=== PATIENT | male | born 1945 | race Caucasian/White ===

== ENCOUNTER → 2017-11-19 | Outpatient (CLI) | payer OTHER ==
[~2017-11-19] MED LIST: ASCA500 PO; ASPCH81; FENO145T26 PO; MULT-506 PO; PARO1TAB27 PO; PRLSR20 PO; SIMV20TA2 PO
--- NOTE | 2017-11-19 10:48 | DIAGNOSTIC IMAGING REPORT ---
R ANKLE MIN 3 VIEWS ROUTINE HISTORY: 72 years-old Male R ANKLE PAIN acute right-sided ankle pain without reported trauma COMPARISON: None available TECHNIQUE: 3 views of the right ankle FINDINGS: There is mild soft tissue signed about the ankle. Suspected small joint effusion. Mild degenerative changes are noted throughout the midfoot and hindfoot without acute fracture, dislocation or osteochondral defect. Ill-defined irregular lucency of the distal fibula at the level of the tibial plafond as seen on the AP projection appears normal on the oblique view suggesting bony trabeculation. IMPRESSION: 1. Ill-defined irregular lucency of the distal fibula at the level of the tibial plafond is seen on the AP projection only and likely reflects bony trabeculation with acute nondisplaced fracture thought to be less likely. Correlate with point tenderness. 2. Mild soft tissue swelling. The above report was generated using voice recognition software. It may contain grammatical, syntax or spelling errors. Electronically signed by: Bryce Corbett M.D. 11/19/2017 10:47 AM Dictated Date/Time: 11/19/2017 10:43 AM
== END | disposition home or self-care (01) ==
LOC: C.RAD1850 10:32
PROVIDERS: ATTEND Family Medicine
DX: M25.571 Pain in right ankle and joints of right foot (principal); R93.7 Abnormal findings on diagnostic imaging of other parts of musculoskeletal system

== ENCOUNTER → 2018-01-22 | Outpatient (CLI) | payer OTHER ==
--- NOTE | 2018-01-22 09:50 | DIAGNOSTIC IMAGING REPORT ---
R ANKLE MIN 3 VIEWS ROUTINE HISTORY: 73 years-old Male RIGHT ANKLE PAIN acute right ankle pain COMPARISON: Right ankle radiographs 11/19/2017 TECHNIQUE: 3 views of the right ankle FINDINGS: There is no acute fracture or dislocation. The distal tibia and fibula appear intact. Small ankle joint effusion with mild soft tissue swelling about the ankle. Mild marginal spurring of the dorsal talus and navicular. No opaque foreign body. No osteochondral defect. IMPRESSION: 1. No acute fracture or dislocation. 2. Mild soft tissue swelling about the ankle with small ankle joint effusion. The above report was generated using voice recognition software. It may contain grammatical, syntax or spelling errors. Electronically signed by: Bryce Corbett M.D. 01/22/2018 9:48 AM Dictated Date/Time: 01/22/2018 9:47 AM
== END | disposition home or self-care (01) ==
LOC: C.RAD1850 09:12
PROVIDERS: ATTEND Family Medicine
DX: S99.911A Unspecified injury of right ankle, initial encounter (principal); W10.8XXA Fall (on) (from) other stairs and steps, initial encounter

== ENCOUNTER 2019-04-12 13:57 | Observation (INO) ==
--- OUTSIDE RECORDS SUMMARY | 2019-04-12 14:01 | External Medical Summary | Continuity of Care Document ---
:1945 Author Name Kayla Vazquez, Provider Address Unavailable Unavailable , Care Team Providers Name Role Phone Unavailable Unavailable Unavailable MELY RAMOS Unavailable Unavailable Problems Active medical history not documented Allergies and Adverse Reactions Penicillins (Allergy) Medications Lidex OINT , M.DRubén Refills: 0 Aspirin TABS , M.DRubén Refills: 0 Procedures Procedures not documented Immunizations Immunizations not documented Plan of Treatment Planned Observations Planned Goals not documented Results No Known Results Results not documented
[2019-04-12 14:40] LABS: Basophils # (auto) 0.01 K/uL (0-0.2); Basophils % (auto) 0.2 %; Eosinophils # (auto) 0.19 K/uL (0-0.5); Eosinophils % (auto) 3.6 %; Hematocrit (blood only) 42.5 % (42-52); Hemoglobin 14.1 g/dL (14.0-18.0); Immature Granulocytes # (auto) 0.02 K/uL (0.00-0.02); Immature Granulocytes % (auto) 0.4 %; Lymphocytes % (auto) 37.5 %; Mean Corpuscular Hgb Conc 33.2 g/dL (32-36); Mean Corpuscular Volume 86.2 fL (80-100); Mean Platelet Volume 10.2 fL (7.4-10.4); Monocytes # (auto) 0.63 K/uL (0.11-0.59); Monocytes % (auto) 11.8 %; Neutrophils # (auto) 2.48 K/uL (1.4-6.5); Neutrophils % (auto) 46.5 %; Platelet Count 223 K/uL (130-400); RDW Coefficient of Variation 13.9 % (11.5-14.5); RDW Standard Deviation 43.9 fL (36.4-46.3); Red Blood Count 4.93 M/uL (4.7-6.1); White Blood Count 5.33 K/uL (4.8-10.8)
--- NOTE | 2019-04-12 14:48 | XRay Report ---
SINGLE VIEW CHEST CLINICAL HISTORY: Atypical chest pain. FINDINGS: 2 AP, portable, upright chest radiographs are compared to study dated 01/07/2019. The examin ation is degraded by portable technique and patient rotation. The cardiomediastinal silhouette is un remarkable noting atherosclerotic calcification of the thoracic aorta. There is chronic elevation of right hemidiaphragm with associated atelectasis. The left lung appears clear. No large pleural effusi on or pneumothorax is seen. The skeletal structures are osteopenic. The bony thorax is grossly intact . IMPRESSION: No acute cardiopulmonary abnormality. Electronically signed by: Giorgio Brown M.D. 04/12/2019 2:46 PM
[2019-04-12 15:00] LABS: Alanine Aminotransferase 34 U/L (12-78); Albumin Level 3.9 gm/dl (3.4-5.0); Aspartate Aminotransferase 23 U/L (15-37); BUN Creatinine Ratio 18.9 (10-20); Blood Urea Nitrogen 20 mg/dl (7-18); Calcium 9.3 mg/dl (8.5-10.1); Carbon Dioxide 28 mmol/L (21-32); Chloride 108 mmol/L (98-107); Creatinine Clr Calc Pharmacy 69.9 ml/min; Est GFR (African American) 79.7; Est GFR (Non-African American) 68.8; Glucose 114 mg/dl (70-99); Magnesium 1.8 mg/dl (1.8-2.4); Potassium 3.9 mmol/L (3.5-5.1); Sodium 141 mmol/L (136-145)
[2019-04-12 15:05] LABS: Albumin Globulin Ratio 1.3 (0.9-2); Alkaline Phosphatase 64 U/L (45-117); Bilirubin,Total 0.5 mg/dl (0.2-1); Globulin 2.9 gm/dl (2.5-4.0); Total Protein 6.8 gm/dl (6.4-8.2); Troponin I < 0.015 ng/ml (0-0.045)
--- NOTE | 2019-04-12 15:20 | Emergency Department Note ---
Entered by Lashawn Larsen acting as a scribe for Giorgio Burgess MD History of Present Illness General Chief complaint: Chest Pain Stated complaint: DISCOMFORT IN CHEST Time Seen by Provider: 04/12/19 14:20 Source: patient History of Present Illness Provider complaint: chest pain Onset (ago): month(s) (last several months) Location: chest Pain Consistency: + intermittent Maximum Pain Intensity: 7 Quality: + burning Exacerbated By: + movement (exertion) Associated symptoms: + diaphoresis and + shortness of breath The patient is a 74 year old male who presents to the Emergency Department with complaints of intermittent chest pain for the last several months. The patient rates his pain at a 7/10 and states that when he gets the pain he usually has it for about an hour. He states that it is a burning pain and feels like indigestion. He states that he takes Omeprazole for his symptoms. He states that exertion sometimes exacerbates his symptoms. He denies a history of a cholecystectomy but states that eating does not usually exacerbate his symptoms. The patient does report being more short of breath since the winter time when he had the flu. He states that he also sweats a lot but not necessarily with his pain. The patient denies a history of a heart attack or a cardiac stent. The patient states that he called his doctor who referred him here. He denies a history of diabetes, but states that he takes medication for hyperlipidemia. He states that he quit smoking 35 years ago. He reports a family history of valve problems and states that his brother of a heart attack. He states that he takes a baby aspirin but is not on other blood thinners. Home Medications Home Medications Medication Instructions Recorded Confirmed Type Mucinex DM 1 tab PO DIRECTED PRN 01/07/19 04/12/19 History Symbicort 2 puff INHALATION DAILY 01/07/19 04/12/19 History acetaminophen [Tylenol Extra 500 mg PO DIRECTED PRN 01/07/19 04/12/19 History Strength] ascorbic acid (vitamin C) [Vitamin 500 mg PO DAILY 01/07/19 04/12/19 History C] aspirin 81 mg PO DAILY 01/07/19 04/12/19 History atorvastatin 20 mg PO QPM 01/07/19 04/12/19 History fenofibrate nanocrystallized 145 mg PO DAILY 01/07/19 04/12/19 History [Tricor] fluticasone propionate [Flonase 1 spray INTRANASAL DAILY 01/07/19 04/12/19 History Allergy Relief] losartan 50 mg PO DAILY 01/07/19 04/12/19 History multivitamin 1 tab PO DAILY 01/07/19 04/12/19 History omeprazole 20 mg PO DAILY 01/07/19 04/12/19 History paroxetine HCl [Paxil] 20 mg PO DAILY 01/07/19 04/12/19 History Allergies Allergy/AdvReac Type Severity Reaction Status Date / Time Penicillins Allergy Intermediate HIVES Unverified 04/12/19 16:04 banana Allergy Unknown Unverified 04/12/19 16:04 Past Med/Surg History Medical History Asthma Dyslipidemia GERD (gastroesophageal reflux disease) H/O tobacco use, presenting hazards to health HTN (hypertension) Surgical History No pertinent past surgical history Family History Brother Coronary heart disease Mother Coronary heart disease Father AAA (abdominal aortic aneurysm) Sister Coronary heart disease Other Family history non-contributory Myocardial infarction Social History Preferred Language: Tunisian Communication Ability: Effective Beliefs That Will Affect Care: Restoration Restoration Beliefs: "I'm a [place]" Current Living Situation: Spouse Feels Safe at Home: Yes Smoking Status: Former smoker Second Hand Exposure: No Hx Alcohol Use: Yes Hx Substance Use: No Review of Systems See HPI for pertinent positives & negatives. and A total of 10 systems reviewed and were otherwise negative Physical Exam Vital Signs Vital Signs - 24 hr 04/12/19 14:02 04/12/19 14:18 04/12/19 14:23 Temperature 36.8 C Temperature Source Oral Sepsis Recent Fever Within 48 Hours No Sepsis Action Taken by Nursing No Action Required Pulse Rate 89 79 Pulse Rate [Apical] Pulse Rate from SpO2 Sensor 80 Pulse Rhythm [Apical] Pulse Strength [Apical] Respiratory Rate 20 19 Respiratory Effort / Characteristics Non-Labored Spontaneous Non-Labored Spontaneous Respiratory Depth Normal Normal Blood Pressure 144/70 H 137/72 Blood Pressure [Right Arm] Blood Pressure Mean 94 93 Blood Pressure Mean [Right Arm] Blood Pressure Position Sitting Blood Pressure Position [Right Arm] Pulse Oximetry 93 93 Oxygen Delivery Method Room Air Room Air Room Air 04/12/19 14:30 04/12/19 14:35 04/12/19 14:38 Temperature Temperature Source Sepsis Recent Fever Within 48 Hours Sepsis Action Taken by Nursing Pulse Rate 81 Pulse Rate [Apical] 76 Pulse Rate from SpO2 Sensor 81 Pulse Rhythm [Apical] Regular Pulse Strength [Apical] Normal Respiratory Rate 20 18 Respiratory Effort / Characteristics Non-Labored Spontaneous Respiratory Depth Normal Blood Pressure 139/76 Blood Pressure [Right Arm] 139/76 Blood Pressure Mean 97 Blood Pressure Mean [Right Arm] 97 Blood Pressure Position Blood Pressure Position [Right Arm] Sitting Pulse Oximetry 92 92 92 Oxygen Delivery Method Room Air Room Air 04/12/19 15:33 04/12/19 15:34 04/12/19 15:35 Temperature Temperature Source Sepsis Recent Fever Within 48 Hours Sepsis Action Taken by Nursing Pulse Rate 66 67 Pulse Rate [Apical] 67 Pulse Rate from SpO2 Sensor 66 67 Pulse Rhythm [Apical] Pulse Strength [Apical] Respiratory Rate 17 20 21 Respiratory Effort / Characteristics Respiratory Depth Blood Pressure 140/70 Blood Pressure [Right Arm] 140/70 Blood Pressure Mean 93 Blood Pressure Mean [Right Arm] 93 Blood Pressure Position Blood Pressure Position [Right Arm] Pulse Oximetry 94 92 94 Oxygen Delivery Method Room Air 04/12/19 16:00 04/12/19 16:01 04/12/19 16:26 Temperature Temperature Source Sepsis Recent Fever Within 48 Hours Sepsis Action Taken by Nursing Pulse Rate 67 68 Pulse Rate [Apical] 71 Pulse Rate from SpO2 Sensor 67 68 Pulse Rhythm [Apical] Pulse Strength [Apical] Respiratory Rate 22 20 21 Respiratory Effort / Characteristics Respiratory Depth Blood Pressure 145/71 H Blood Pressure [Right Arm] 145/71 H Blood Pressure Mean 95 Blood Pressure Mean [Right Arm] 95 Blood Pressure Position Blood Pressure Position [Right Arm] Pulse Oximetry 92 92 95 Oxygen Delivery Method Room Air 04/12/19 16:30 04/12/19 17:00 04/12/19 17:01 Temperature Temperature Source Sepsis Recent Fever Within 48 Hours Sepsis Action Taken by Nursing Pulse Rate 68 67 67 Pulse Rate [Apical] Pulse Rate from SpO2 Sensor 69 68 67 Pulse Rhythm [Apical] Pulse Strength [Apical] Respiratory Rate 24 16 20 Respiratory Effort / Characteristics Respiratory Depth Blood Pressure 141/79 H 140/74 Blood Pressure [Right Arm] Blood Pressure Mean 99 96 Blood Pressure Mean [Right Arm] Blood Pressure Position Blood Pressure Position [Right Arm] Pulse Oximetry 94 94 93 Oxygen Delivery Method 04/12/19 17:47 04/12/19 17:57 Temperature Temperature Source Sepsis Recent Fever Within 48 Hours Sepsis Action Taken by Nursing Pulse Rate Pulse Rate [Apical] 73 Pulse Rate from SpO2 Sensor Pulse Rhythm [Apical] Pulse Strength [Apical] Respiratory Rate 20 20 Respiratory Effort / Characteristics Respiratory Depth Blood Pressure Blood Pressure [Right Arm] 143/77 H Blood Pressure Mean Blood Pressure Mean [Right Arm] 99 Blood Pressure Position Blood Pressure Position [Right Arm] Pulse Oximetry 93 93 Oxygen Delivery Method Room Air Room Air GENERAL: Patient is in no acute distress. HEENT: No acute trauma, normocephalic atraumatic, mucous membranes moist, no nasal congestion, no scleral icterus. NECK: No stridor, no adenopathy, no meningismus, trachea is midline. LUNGS: Clear to auscultation bilaterally, no wheeze, no rhonchi, breath sounds equal. HEART: Without murmurs gallops or rubs, regular rate and rhythm. ABDOMEN: Soft, nontender, bowel sounds positive, no hernias, no peritonitis. EXTREMITIES: No cyanosis or edema, full range of motion of all the joints without pain or difficulty, no signs for acute trauma. NEUROLOGIC: Oriented x 3, no acute motor or sensory deficits, no focal weakness. SKIN: No rash, no jaundice, no diaphoresis. Course 1421: The patient was evaluated in room B2. A history and physical were performed. 1428: The patient's heart score is a 4. 1608: I updated the patient on his results. He is agreeable to admission. 1620: I discussed the patient's case with Dr. Fausto Carreon who will evaluate the patient for further management. Consultations Consultation #1: Dr. Fausto Carreon Time: 16:20 Medical Decision Making Differential Diagnosis Differentials include reflux, gastritis, ulcer, pancreatitis, biliary colic, anemia, electrolyte imbalance, MN, and angina. Medical Records Attestation: I reviewed the patient's medical records. Home Medications Current Medication List: was personally reviewed by me Laboratory Data Attestation: I reviewed the patient's lab results. Result diagrams: 04/12/19 14:18 04/12/19 14:18 Lab Results 04/12/19 04/12/19 Range/Units 14:18 14:18 WBC 5.33 (4.8-10.8) K/uL RBC 4.93 (4.7-6.1) M/uL Hgb 14.1 (14.0-18.0) g/dL Hct 42.5 (42-52) % MCV 86.2 (80-100) fL MCH 28.6 (25-34) pg MCHC 33.2 (32-36) g/dL RDW Std Deviation 43.9 (36.4-46.3) fL RDW Coeff of Mariano 13.9 (11.5-14.5) % Plt Count 223 (130-400) K/uL MPV 10.2 (7.4-10.4) fL Immature Gran % (Auto) 0.4 % Neut % (Auto) 46.5 % Lymph % (Auto) 37.5 % [place] % (Auto) 11.8 % Eos % (Auto) 3.6 % Baso % (Auto) 0.2 % Immature Gran # (Auto) 0.02 (0.00-0.02) K/uL Neut # (Auto) 2.48 (1.4-6.5) K/uL Lymph # (Auto) 2.00 (1.2-3.4) K/uL [place] # (Auto) 0.63 H (0.11-0.59) K/uL Eos # (Auto) 0.19 (0-0.5) K/uL Baso # (Auto) 0.01 (0-0.2) K/uL Sodium 141 (136-145) mmol/L Potassium 3.9 (3.5-5.1) mmol/L Chloride 108 H (98-107) mmol/L Carbon Dioxide 28 (21-32) mmol/L Anion Gap 5.0 (3-11) BUN 20 H (7-18) mg/dl Creatinine 1.06 (0.6-1.4) mg/dl Est Cr Clr Drug Dosing 69.9 ml/min Est GFR ( Amer) 79.7 Est GFR (Non-Af Amer) 68.8 BUN/Creatinine Ratio 18.9 (10-20) Glucose 114 H (70-99) mg/dl Calcium 9.3 (8.5-10.1) mg/dl Magnesium 1.8 (1.8-2.4) mg/dl Total Bilirubin 0.5 (0.2-1) mg/dl AST 23 (15-37) U/L ALT 34 (12-78) U/L Alkaline Phosphatase 64 (45-117) U/L Troponin I < 0.015 (0-0.045) ng/ml Total Protein 6.8 (6.4-8.2) gm/dl Albumin 3.9 (3.4-5.0) gm/dl Globulin 2.9 (2.5-4.0) gm/dl Albumin/Globulin Ratio 1.3 (0.9-2) Lipase 163 (73-393) U/L Imaging Data Radiologist's Impression: Radiology results as stated below per my review and the radiologist's interpretation: SINGLE VIEW CHEST CLINICAL HISTORY: Atypical chest pain. FINDINGS: 2 AP, portable, upright chest radiographs are compared to study dated 01/07/2019. The examination is degraded by portable technique and patient rotation. The cardiomediastinal silhouette is unremarkable noting atherosclerotic calcification of the thoracic aorta. There is chronic elevation of right hemidiaphragm with associated atelectasis. The left lung appears clear. No large pleural effusion or pneumothorax is seen. The skeletal structures are osteopenic. The bony thorax is grossly intact. IMPRESSION: No acute cardiopulmonary abnormality. Electronically signed by: Giorgio Brown M.D. 04/12/2019 2:46 PM US gallbladder CLINICAL HISTORY: Epigastric pain. COMPARISON STUDY: No previous studies for comparison. FINDINGS: Exam is compromised by suboptimal penetration. The pancreas is obscured by bowel gas. The liver is mildly echogenic. No hepatic lesions are identified. No biliary ductal dilatation is identified. The common bile duct measures 5 mm in caliber. Multiple gallstones are noted within the gallbladder. Gallbladder is contracted. No sonographic Zhou sign was reported by the technologist. Gallbladder wall thickness is at the upper limits of normal. There is no right hydronephrosis. IMPRESSION: 1. Cholelithiasis. No convincing evidence for acute cholecystitis although a hepatobiliary scan could be obtained as indicated. 2. No biliary ductal dilatation. 3. Obscured pancreas due to overlying bowel gas. 4. Possible fatty liver. Electronically signed by: Tae Sutton M.D. 04/12/2019 3:21 PM ECG Data Attestation: I personally reviewed and interpreted this ECG as follows: Indication: chest pain Rate (beats per minute): 79 Rhythm: normal sinus Findings: no PVC and no ST elevation Blood Pressure Blood Pressure Findings: Elevated blood pressure Blood Pressure Disposition: further management by hospitalist MDM Narrative There is no leukocytosis or concerning anemia. No significant electrolyte abnormality or kidney failure. No elevation to the liver enzymes. No evidence for pancreatitis. EKG showed a sinus rhythm, no acute ischemia. Cardiac enzyme testing x1 was not consistent with acute cardiac injury. Chest film did not show mediastinal widening or pneumonia. Gallbladder ultrasound showed gallstones without acute cholecystitis. The patient presents with several months of symptoms which sound possibly GI in nature, possibly cardiac in nature. The patient does have a heart score of 4, admission/observation for further cardiac testing is warranted based on this number. I talked to the patient about hospitalization, he was in agreement. I did speak with the case management team, the on-call hospitalist was consulted. Impression & Plan Precordial chest pain, SOB (shortness of breath), Gallstones Discharge Plan Visit Data Chief Complaint: Chest Pain Stated Complaint: DISCOMFORT IN CHEST ED Provider: Giorgio Burgess Discharge Problem: Precordial chest pain, SOB (shortness of breath), Gallstones Patient Disposition: Being Evaluated by Hospitalist Discharge Instructions Interventions: ED Discharge Assessment Last Done: 04/12/19 17:57 Forms Stand Alone Forms: Call Back Authorization, [facility] Prescriptions Prescriptions: No Action multivitamin Tablet 1 tab PO DAILY RF: 0 losartan 50 mg Tablet 50 mg PO DAILY RF: 0 atorvastatin 20 mg Tablet 20 mg PO QPM RF: 0 aspirin 81 mg Tablet,Delayed Release (Dr/Ec) 81 mg PO DAILY RF: 0 acetaminophen [Tylenol Extra Strength] 500 mg Tablet 500 mg PO DIRECTED PRN (Reason: Pain) RF: 0 ascorbic acid (vitamin C) [Vitamin C] 500 mg Tablet 500 mg PO DAILY RF: 0 paroxetine HCl [Paxil] 20 mg Tablet 20 mg PO DAILY RF: 0 omeprazole 20 mg Capsule,Delayed Release(Dr/Ec) 20 mg PO DAILY RF: 0 Mucinex DM 30-600 mg Tablet Extended Release 12 Hr 1 tab PO DIRECTED PRN (Reason: Unknown) RF: 0 fluticasone propionate [Flonase Allergy Relief] 50 mcg/actuation Harmon,Rahman spension 1 spray INTRANASAL DAILY RF: 0 fenofibrate nanocrystallized [Tricor] 145 mg Tablet 145 mg PO DAILY RF: 0 Symbicort 80-4.5 mcg/actuation Hfa Aerosol Inhaler 2 puff INHALATION DAILY RF: 0 Referrals Referrals: Wayne Alexander DO [Primary Care Provider] - The scribe's documentation has been prepared under my direction and personally reviewed by me in its entirety. I confirm that the note above accurately reflects all work, treatment, procedures, and medical decision making performed by me.
--- NOTE | 2019-04-12 15:22 | Ultrasound Report ---
US gallbladder CLINICAL HISTORY: Epigastric pain. COMPARISON STUDY: No previous studies for comparison. FINDINGS: Exam is compromised by suboptimal penetration. The pancreas is obscured by bowel gas. The l iver is mildly echogenic. No hepatic lesions are identified. No biliary ductal dilatation is identifi ed. The common bile duct measures 5 mm in caliber. Multiple gallstones are noted within the gallbladd er. Gallbladder is contracted. No sonographic Zhou sign was reported by the technologist. Gallbladd er wall thickness is at the upper limits of normal. There is no right hydronephrosis. IMPRESSION: 1. Cholelithiasis. No convincing evidence for acute cholecystitis although a hepatobiliary scan could be obtained as indicated. 2. No biliary ductal dilatation. 3. Obscured pancreas due to overlying bowel gas. 4. Possible fatty liver. Electronically signed by: Tae Sutton M.D. 04/12/2019 3:21 PM
--- NOTE | 2019-04-12 16:52 | History & Physical Report ---
Date of Service April 12, 2019 Assessment & Plan (1) Epigastric pain: Patient with 2-3 months of intermittent epigastric discomfort -HIDA scan -Repeat troponin to document trend -Telemetry monitoring (2) Asthma: Chronic. Stable -Continue Symbicort -Continue Flonase (3) Hypertension: Chronic. Mildly elevated BP at present 145/71 -Continue Losartan (4) Dyslipidemia: Chronic -Continue Atorvastatin -Continue Tricor (5) GERD (gastroesophageal reflux disease): Chronic -Continue Omeprazole (6) Depression: Chronic. stable -Continue Paxil F/E/N - Heplock. Electolytes WNL. Heart healthy diet as tolerated Ppx - low risk for DVT. Continue home Omeprazole Code - Full Dispo - Obs to med with telemetry History of Present Illness Chief Complaint: Epigastric pain Primary Care Provider: Wayne Alexander DO Mr. Skinner is a 74yo C male with history of asthma, GERD, HTN and dyslipidemia presenting with 2-3 months of intermittent epigastric and RUQ pain. Possibly associated with meals. Occasionally brought on with activity. Pain is a dull ache, 7/10 in severity at its worst. Lasts appx 30 minutes then resolves. Denies nausea/vomiting/abdominal distention/precordial CP/SOB/palpitations. Denies orthopnea/edema/weight gain/diaphoresis. Denies fevers/chills/jaundice Allergies Allergy/AdvReac Type Severity Reaction Status Date / Time Penicillins Allergy Intermediate HIVES Unverified 04/12/19 16:04 banana Allergy Unknown Unverified 04/12/19 16:04 Home Medications Home Medications Medication Instructions Recorded Confirmed Type Mucinex DM 1 tab PO DIRECTED PRN 01/07/19 04/12/19 History Symbicort 2 puff INHALATION DAILY 01/07/19 04/12/19 History acetaminophen [Tylenol Extra 500 mg PO DIRECTED PRN 01/07/19 04/12/19 History Strength] ascorbic acid (vitamin C) [Vitamin 500 mg PO DAILY 01/07/19 04/12/19 History C] aspirin 81 mg PO DAILY 01/07/19 04/12/19 History atorvastatin 20 mg PO QPM 01/07/19 04/12/19 History fenofibrate nanocrystallized 145 mg PO DAILY 01/07/19 04/12/19 History [Tricor] fluticasone propionate [Flonase 1 spray INTRANASAL DAILY 01/07/19 04/12/19 History Allergy Relief] losartan 50 mg PO DAILY 01/07/19 04/12/19 History multivitamin 1 tab PO DAILY 01/07/19 04/12/19 History omeprazole 20 mg PO DAILY 01/07/19 04/12/19 History paroxetine HCl [Paxil] 20 mg PO DAILY 01/07/19 04/12/19 History Past Med/Surg History Medical History Asthma Dyslipidemia GERD (gastroesophageal reflux disease) H/O tobacco use, presenting hazards to health HTN (hypertension) Surgical History History of hernia repair History of rotator cuff surgery Family History Brother Coronary heart disease Mother Coronary heart disease Father AAA (abdominal aortic aneurysm) Sister Coronary heart disease Other Family history non-contributory Myocardial infarction Social History Preferred Language: Polish Communication Ability: Effective Economics Department Chair Required: No Beliefs That Will Affect Care: Scientologist Scientologist Beliefs: "I'm a Bretheran" Current Living Situation: Spouse Other Information That Helps Us Care for You: No Feels Safe at Home: Yes Safety Concerns: Feels Safe At This Time Smoking Status: Former smoker Smoking End Date: quit in mid to late 30's Second Hand Exposure: No Hx Alcohol Use: Yes Hx Substance Use: No Review of Systems Review of Systems: All systems reviewed & are unremarkable except as noted in HPI & below Physical Exam Physical Exam: General: patient resting comfortably, NAD, non-toxic in appearance, AA&O x 4 Skin: warm, dry, intact, no rashes or lesions HEENT: NC/AT, PERRL, EOMI, anicteric sclera, conjunctiva without injection, external ear normal to inspection and nontender, nares patent, moist mucus membranes, dentition intact, no oropharyngeal lesions, neck supple, trachea midline, no LAD, no thyromegaly, no JVD Heart: +S1/S2, regular, no m/r/g Lungs: equal air entry bilaterally, no rales/rhonchi/wheezes Abd: +BS, soft, NT/ND, no masses/organomegaly/ascites, negative [place] Ext: warm, 2+ pulses in UE/LE bilaterally, no clubbing/cyanosis or edema Neuro: nonfocal, patient AA&O x 4, speech intact, no facial droop, moving all extremities on command with equal strength 5/5 Results & Data Vital Signs (Past 12 Hours) Vital Signs Temp Pulse Pulse Resp BP BP Pulse Ox 04/12/19 16:26 71 21 145/71 H 95 04/12/19 15:34 67 20 140/70 92 04/12/19 14:38 92 04/12/19 14:35 76 18 139/76 92 04/12/19 14:18 79 19 137/72 93 04/12/19 14:02 36.8 C 89 20 144/70 H 93 Laboratory Results Lab Results 04/12/19 04/12/19 04/12/19 Range/Units 14:18 14:18 20:14 WBC 5.33 (4.8-10.8) K/uL RBC 4.93 (4.7-6.1) M/uL Hgb 14.1 (14.0-18.0) g/dL Hct 42.5 (42-52) % MCV 86.2 (80-100) fL MCH 28.6 (25-34) pg MCHC 33.2 (32-36) g/dL RDW Std Deviation 43.9 (36.4-46.3) fL RDW Coeff of Mariano 13.9 (11.5-14.5) % Plt Count 223 (130-400) K/uL MPV 10.2 (7.4-10.4) fL Immature Gran % (Auto) 0.4 % Neut % (Auto) 46.5 % Lymph % (Auto) 37.5 % [place] % (Auto) 11.8 % Eos % (Auto) 3.6 % Baso % (Auto) 0.2 % Immature Gran # (Auto) 0.02 (0.00-0.02) K/uL Neut # (Auto) 2.48 (1.4-6.5) K/uL Lymph # (Auto) 2.00 (1.2-3.4) K/uL [place] # (Auto) 0.63 H (0.11-0.59) K/uL Eos # (Auto) 0.19 (0-0.5) K/uL Baso # (Auto) 0.01 (0-0.2) K/uL Sodium 141 (136-145) mmol/L Potassium 3.9 (3.5-5.1) mmol/L Chloride 108 H (98-107) mmol/L Carbon Dioxide 28 (21-32) mmol/L Anion Gap 5.0 (3-11) BUN 20 H (7-18) mg/dl Creatinine 1.06 (0.6-1.4) mg/dl Est Cr Clr Drug Dosing 69.9 ml/min Est GFR ( Amer) 79.7 Est GFR (Non-Af Amer) 68.8 BUN/Creatinine Ratio 18.9 (10-20) Glucose 114 H (70-99) mg/dl Calcium 9.3 (8.5-10.1) mg/dl Magnesium 1.8 (1.8-2.4) mg/dl Total Bilirubin 0.5 (0.2-1) mg/dl AST 23 (15-37) U/L ALT 34 (12-78) U/L Alkaline Phosphatase 64 (45-117) U/L Troponin I < 0.015 < 0.015 (0-0.045) ng/ml Total Protein 6.8 (6.4-8.2) gm/dl Albumin 3.9 (3.4-5.0) gm/dl Globulin 2.9 (2.5-4.0) gm/dl Albumin/Globulin Ratio 1.3 (0.9-2) Lipase 163 (73-393) U/L Diagnostic Findings US gallbladder CLINICAL HISTORY: Epigastric pain. COMPARISON STUDY: No previous studies for comparison. FINDINGS: Exam is compromised by suboptimal penetration. The pancreas is obscured by bowel gas. The liver is mildly echogenic. No hepatic lesions are identified. No biliary ductal dilatation is identified. The common bile duct measures 5 mm in caliber. Multiple gallstones are noted within the gallbladder. Gallbladder is contracted. No sonographic Zhou sign was reported by the technologist. Gallbladder wall thickness is at the upper limits of normal. There is no right hydronephrosis. IMPRESSION: 1. Cholelithiasis. No convincing evidence for acute cholecystitis although a hepatobiliary scan could be obtained as indicated. 2. No biliary ductal dilatation. 3. Obscured pancreas due to overlying bowel gas. 4. Possible fatty liver. Electronically signed by: Tae Sutton M.D. 04/12/2019 3:21 PM SINGLE VIEW CHEST CLINICAL HISTORY: Atypical chest pain. FINDINGS: 2 AP, portable, upright chest radiographs are compared to study dated 01/07/2019. The examination is degraded by portable technique and patient rotation. The cardiomediastinal silhouette is unremarkable noting atheroscle rotic calcification of the thoracic aorta. There is chronic elevation of right hemidiaphragm with associated atelectasis. The left lung appears clear. No large pleural effusion or pneumothorax is seen. The skeletal structures are osteopenic. The bony thorax is grossly intact. IMPRESSION: No acute cardiopulmonary abnormality. Electronically signed by: Giorgio Brown M.D. 04/12/2019 2:46 PM Dictated: 04/12/19 1445 Transcribed: 04/12/19 1445 ECG Additional Comments: NSR at 79, normal axis and intervals, no acute ischemic changes Code Status & VTE Plan Code Status Full
[2019-04-12] MEDS ORDERED: ACETAMINOPHEN 325 MG TAB PO PRN (18:38)
[2019-04-12] MEDS ORDERED: ONDANSETRON INJ 2 MG/ML 2 ML VIAL IV PRN (18:38)
[2019-04-12] MEDS ORDERED: ATORVASTATIN 20 MG TAB PO SCH (21:00)
[2019-04-13 03:50] LABS: Blood Urea Nitrogen 21 mg/dl (7-18); Calcium 9.7 mg/dl (8.5-10.1); Carbon Dioxide 30 mmol/L (21-32); Chloride 107 mmol/L (98-107); Est GFR (African American) 77.1; Est GFR (Non-African American) 66.5; Glucose 97 mg/dl (70-99); Sodium 141 mmol/L (136-145); Troponin I < 0.015 ng/ml (0-0.045)
[2019-04-13 04:03] LABS: Basophils # (auto) 0.02 K/uL (0-0.2); Basophils % (auto) 0.3 %; Eosinophils # (auto) 0.24 K/uL (0-0.5); Eosinophils % (auto) 3.7 %; Hematocrit (blood only) 41.9 % (42-52); Hemoglobin 13.8 g/dL (14.0-18.0); Immature Granulocytes # (auto) 0.03 K/uL (0.00-0.02); Immature Granulocytes % (auto) 0.5 %; Lymphocytes # (auto) 2.58 K/uL (1.2-3.4); Lymphocytes % (auto) 39.5 %; Mean Corpuscular Hgb Conc 32.9 g/dL (32-36); Mean Corpuscular Volume 86.4 fL (80-100); Monocytes # (auto) 0.58 K/uL (0.11-0.59); Monocytes % (auto) 8.9 %; Neutrophils # (auto) 3.08 K/uL (1.4-6.5); Neutrophils % (auto) 47.1 %; Platelet Count 208 K/uL (130-400); RDW Coefficient of Variation 13.9 % (11.5-14.5); RDW Standard Deviation 43.5 fL (36.4-46.3); Red Blood Count 4.85 M/uL (4.7-6.1); White Blood Count 6.53 K/uL (4.8-10.8)
[2019-04-13] MEDS ORDERED: ASPIRIN 81 MG ECTAB PO SCH (09:00)
[2019-04-13] MEDS ORDERED: LOSARTAN POTASSIUM 50 MG TAB PO SCH (09:00)
[2019-04-13] MEDS ORDERED: PARoxetine HCl 20 MG TAB PO SCH (09:00)
[2019-04-13] MEDS ORDERED: BUDESONIDE/FORMOTEROL FUMARATE 80/4.5 60 PUFFS/INHALER INH SCH (09:00)
[2019-04-13] MEDS ORDERED: FLUTICASONE PROPIONATE NA SPR 16 GM BTL SCH (09:00)
[2019-04-13] MEDS ORDERED: PANTOprazole 40 MG TAB PO SCH (09:00)
[2019-04-13] MEDS ORDERED: FENOFIBRATE NANOCRYSTALLIZED 145 MG TABLET PO SCH (09:00)
--- NOTE | 2019-04-13 10:04 | Nuclear Medicine Report ---
NM hepatobiliary HISTORY: Pain. Nausea. ?biliary colic/cholecystits COMPARISON: None. TECHNIQUE: Immediately following the intravenous administration of 5.3 mCi Tc-99m Choletec, dynamic a nterior abdominal imaging was performed. FINDINGS: Uniform hepatic tracer accumulation is shown. Prompt intrahepatic biliary excretion is seen. The gall bladder, common bile duct, and small bowel are all visualized by 15 minutes. This appearance represen ts the normal sequence of biliary excretion. IMPRESSION: No evidence for cystic duct obstruction. Normal study The above report was generated using voice recognition software. It may contain grammatical, syntax or spelling errors. Electronically signed by: Dar Everett M.D. 04/13/2019 10:03 AM
--- NOTE | 2019-04-13 19:37 | Discharge Summary ---
Date of Service April 13, 2019 Admission HPI Per Admitting Provider Mr. Skinner is a 74yo C male with history of asthma, GERD, HTN and dyslipidemia presenting with 2-3 months of intermittent epigastric and RUQ pain. Possibly associated with meals. Occasionally brought on with activity. Pain is a dull ache, 7/10 in severity at its worst. Lasts appx 30 minutes then resolves. Denies nausea/vomiting/abdominal distention/precordial CP/SOB/palpitations. Denies orthopnea/edema/weight gain/diaphoresis. Denies fevers/chills/jaundice Principal Diagnosis Epigastric pain, probable peptic ulcer disease spectrum Discharge Exam In general he is awake and alert pleasant no distress. HEENT normocephalic atraumatic mucous membranes moist. Breathing is unlabored no accessory muscle use good effort. Skin shows no rashes no pallor or icterus. Abdomen is soft nondistended minimal epigastric tenderness no guarding rebound no rigidity no right upper quadrant tenderness. Neuro shows cranial nerves II through XII are grossly intact gross motor and sensory intact. Mental status is good recent and remote recall normal mood affect good judgment insight Discharge Data Allergies Allergy/AdvReac Type Severity Reaction Status Date / Time Penicillins Allergy Intermediate HIVES Unverified 04/12/19 16:04 banana Allergy Unknown Unverified 04/12/19 16:04 Consultations 04/12/19 16:08 ED Decision to Admit Stat 04/13/19 14:10 Consult [facility] cardiac care nurse Routine Ordered Studies 04/12/19 14:29 US gallbladder Stat Showing Kathleen lithiasis but no cholecystitis or choledocholithiasis HIDA scan normal Lab Results 04/12/19 04/12/19 04/12/19 Range/Units 14:18 14:18 20:14 WBC 5.33 (4.8-10.8) K/uL RBC 4.93 (4.7-6.1) M/uL Hgb 14.1 (14.0-18.0) g/dL Hct 42.5 (42-52) % MCV 86.2 (80-100) fL MCH 28.6 (25-34) pg MCHC 33.2 (32-36) g/dL RDW Std Deviation 43.9 (36.4-46.3) fL RDW Coeff of Mariano 13.9 (11.5-14.5) % Plt Count 223 (130-400) K/uL MPV 10.2 (7.4-10.4) fL Immature Gran % (Auto) 0.4 % Neut % (Auto) 46.5 % Lymph % (Auto) 37.5 % [place] % (Auto) 11.8 % Eos % (Auto) 3.6 % Baso % (Auto) 0.2 % Immature Gran # (Auto) 0.02 (0.00-0.02) K/uL Neut # (Auto) 2.48 (1.4-6.5) K/uL Lymph # (Auto) 2.00 (1.2-3.4) K/uL [place] # (Auto) 0.63 H (0.11-0.59) K/uL Eos # (Auto) 0.19 (0-0.5) K/uL Baso # (Auto) 0.01 (0-0.2) K/uL Sodium 141 (136-145) mmol/L Potassium 3.9 (3.5-5.1) mmol/L Chloride 108 H (98-107) mmol/L Carbon Dioxide 28 (21-32) mmol/L Anion Gap 5.0 (3-11) BUN 20 H (7-18) mg/dl Creatinine 1.06 (0.6-1.4) mg/dl Est Cr Clr Drug Dosing 69.9 ml/min Est GFR ( Amer) 79.7 Est GFR (Non-Af Amer) 68.8 BUN/Creatinine Ratio 18.9 (10-20) Glucose 114 H (70-99) mg/dl Calcium 9.3 (8.5-10.1) mg/dl Magnesium 1.8 (1.8-2.4) mg/dl Total Bilirubin 0.5 (0.2-1) mg/dl AST 23 (15-37) U/L ALT 34 (12-78) U/L Alkaline Phosphatase 64 (45-117) U/L Troponin I < 0.015 < 0.015 (0-0.045) ng/ml Total Protein 6.8 (6.4-8.2) gm/dl Albumin 3.9 (3.4-5.0) gm/dl Globulin 2.9 (2.5-4.0) gm/dl Albumin/Globulin Ratio 1.3 (0.9-2) Lipase 163 (73-393) U/L 04/13/19 04/13/19 Range/Units 02:28 02:28 WBC 6.53 (4.8-10.8) K/uL RBC 4.85 (4.7-6.1) M/uL Hgb 13.8 L (14.0-18.0) g/dL Hct 41.9 L (42-52) % MCV 86.4 (80-100) fL MCH 28.5 (25-34) pg MCHC 32.9 (32-36) g/dL RDW Std Deviation 43.5 (36.4-46.3) fL RDW Coeff of Mariano 13.9 (11.5-14.5) % Plt Count 208 (130-400) K/uL MPV 10.0 (7.4-10.4) fL Immature Gran % (Auto) 0.5 % Neut % (Auto) 47.1 % Lymph % (Auto) 39.5 % [place] % (Auto) 8.9 % Eos % (Auto) 3.7 % Baso % (Auto) 0.3 % Immature Gran # (Auto) 0.03 H (0.00-0.02) K/uL Neut # (Auto) 3.08 (1.4-6.5) K/uL Lymph # (Auto) 2.58 (1.2-3.4) K/uL [place] # (Auto) 0.58 (0.11-0.59) K/uL Eos # (Auto) 0.24 (0-0.5) K/uL Baso # (Auto) 0.02 (0-0.2) K/uL Sodium 141 (136-145) mmol/L Potassium 4.0 (3.5-5.1) mmol/L Chloride 107 (98-107) mmol/L Carbon Dioxide 30 (21-32) mmol/L Anion Gap 4.0 (3-11) BUN 21 H (7-18) mg/dl Creatinine 1.09 (0.6-1.4) mg/dl Est Cr Clr Drug Dosing 68.0 ml/min Est GFR ( Amer) 77.1 Est GFR (Non-Af Amer) 66.5 BUN/Creatinine Ratio 19.0 (10-20) Glucose 97 (70-99) mg/dl Calcium 9.7 (8.5-10.1) mg/dl Magnesium (1.8-2.4) mg/dl Total Bilirubin (0.2-1) mg/dl AST (15-37) U/L ALT (12-78) U/L Alkaline Phosphatase (45-117) U/L Troponin I < 0.015 (0-0.045) ng/ml Total Protein (6.4-8.2) gm/dl Albumin (3.4-5.0) gm/dl Globulin (2.5-4.0) gm/dl Albumin/Globulin Ratio (0.9-2) Lipase (73-393) U/L Hospital Course (1) Epigastric pain: Initial differential was concerning for gallbladder. But his ultrasound only showed stones and no cholecystitis or choledocholithiasis. His HIDA was normal. On revisiting his HPI, he describes epigastric discomfort predominantly after eating with burping and belching with more pressure whenever he bends over.He does not have significant right upper quadrant tendernessFortunately does not have significant epigastric tenderness to palpation or anything to suggest decompensating peptic ulcer disease, and after discussion, he and I decide to escalate his PPI to Prilosec twice a day, hold off on his aspirin, and then seek an outpatient EGD (as the navigator to set him up with gastroenterology) he will also follow-up with his PCP until he is getting better. More than likely this is in the peptic ulcer disease spectrum, and he certainly shows no signs or symptoms of upper GI bleed or other decompensations. He is stable for home. Total Time Total Time Spent Total Time Spent (In Minutes): Greater than 30 Discharge Plan Discharge Items Patient Disposition: Home - Self-Care Reason For Visit: ABDOMINAL,EPIGASTRIC PAIN Discharge Diagnosis: epigastric pain - most likely peptic ulcer disease (see below) Discharge Goals: Decrease discomfort Activity: Resume your previous activity Non-emergency contact: Primary Care Provider and Auto Air Conditioning Installer Call non-emergency contact if: you have any medication questions Follow-up/Referrals: Miguel Gregory [Physician] - 06/01/19 2:00 pm Rich Magdaleno MD [Resident] - 04/19/19 10:30 am Diet: Regular and Low Fat Addtl Provider Instructions: epigastric pain - most likely in the spectrum of peptic ulcer disease -while your ultrasound showed gallstones, there fortunately was no other evidence of infection or stones blocking up the drain pipes. as we discussed, somewhere on the order of 20% of people have gallstones that are totally asymptomatic. the "gallbladder stress test" (HIDA) showed that your gallbladder also appears to function normally -given that gallbladder was effectively ruled out, the other common cause of symptoms like you've been having is your stomach. it's quite fitting with your symptoms to have something in the spectrum of peptic ulcer disease (gastritis - a "brush burn" the whole way up to a true ulcer) --> most of these are treated with escalating stomach medicines - so the first step will be to increase your prilosec (omeprazole) to twice a day. we'll work to get you seen with gastroenterology for an EGD (upper endoscopy) in the near future since your symptoms have been going on so long. -as we discussed, avoid anti-inflammatories and alcohol (although neither seem to be a problem for you); but also, for now, hold off on your aspirin -- it is also a common culprit for causing peptic ulcer disease spectrum problems. after the EGD is done, you'll be able to discuss with Dr Alexander the risks and benefits of resuming it. Prescriptions: Continued multivitamin Tablet 1 tab PO DAILY RF: 0 losartan 50 mg Tablet 50 mg PO DAILY RF: 0 atorvastatin 20 mg Tablet 20 mg PO QPM RF: 0 acetaminophen [Tylenol Extra Strength] 500 mg Tablet 500 mg PO DIRECTED PRN (Reason: Pain) RF: 0 ascorbic acid (vitamin C) [Vitamin C] 500 mg Tablet 500 mg PO DAILY RF: 0 paroxetine HCl [Paxil] 20 mg Tablet 20 mg PO DAILY RF: 0 Mucinex DM 30-600 mg Tablet Extended Release 12 Hr 1 tab PO DIRECTED PRN (Reason: Unknown) RF: 0 fluticasone propionate [Flonase Allergy Relief] 50 mcg/actuation [place],Suspension 1 spray INTRANASAL DAILY RF: 0 fenofibrate nanocrystallized [Tricor] 145 mg Tablet 145 mg PO DAILY RF: 0 Symbicort 80-4.5 mcg/actuation Hfa Aerosol Inhaler 2 puff INHALATION DAILY RF: 0 Changed omeprazole 20 mg Capsule,Delayed Release(Dr/Ec) 20 mg PO BID Qty: 0 RF: 0 Discontinued aspirin 81 mg Tablet,Delayed Release (Dr/Ec) 81 mg PO DAILY RF: 0 Stand-Alone Forms: Call Back Authorization, [facility] Discharge Orders: Discharge Order (Routine); Ordered 04/13/19 Ordered By: Pelon Peñaloza Admission Data Admit Date/Time: 04/12/19 16:48 Attending Provider: Tracey Magdaleno Admit Provider: Tracey Magdaleno Primary Care Provider: Wayne Alexander Other Providers: Tracey Magdaleno Service: Telemetry Medical Other Interventions: Discharge Summary Assessment (RN) Last Done: 04/13/19 14:23 DC Date/Time DO NOT enter until pt leaves facility: 04/13/19 14:52
== END 2019-04-13 14:52 | disposition home or self-care (01) ==
LOC: 2N 13:57 → ED 13:57 → 2N 17:57

== ENCOUNTER 2021-11-04 12:32 | Inpatient (IN) ==
[2021-11-04] MEDS ORDERED: dexAMETHasone**PF** 10 MG/ML VIAL IV ONE (13:48)
--- NOTE | 2021-11-04 14:37 | XRay Report ---
XR chest 1V portable CLINICAL HISTORY: Dyspnea TECHNIQUE: Single frontal radiograph of the chest was obtained. Comparison: Comparison is made to chest one view 04/12/2019 FINDINGS: No lines and tubes are seen. Calcified aortic knob is seen. Elevation of the right hemidiaphragm is s een. There is mild prominence of the pulmonary vasculature. No evidence of pleural effusion or pneumo thorax. IMPRESSION: Mild pulmonary edema. ACT 112: Negative or not required by law. Electronically signed by: Mario Morris M.D. 11/04/2021 2:35 PM
[2021-11-04] MEDS ORDERED: FUROSEMIDE 40 MG/4 ML VIAL IV ONE (14:44)
[2021-11-04 14:55] LABS: Basophils # (auto) 0.02 K/uL (0-0.2); Basophils % (auto) 0.2 %; Eosinophils % (auto) 3.8 %; Hematocrit (blood only) 46.5 % (42-52); Immature Granulocytes # (auto) 0.03 K/uL (0.00-0.02); Immature Granulocytes % (auto) 0.3 %; Lymphocytes # (auto) 1.72 K/uL (1.2-3.4); Lymphocytes % (auto) 16.2 %; Mean Corpuscular Hemoglobin 28.6 pg (25-34); Mean Corpuscular Hgb Conc 32.3 g/dL (32-36); Mean Corpuscular Volume 88.6 fL (80-100); Mean Platelet Volume 10.7 fL (7.4-10.4); Monocytes % (auto) 8.5 %; Neutrophils # (auto) 7.55 K/uL (1.4-6.5); Platelet Count 224 K/uL (130-400); RDW Coefficient of Variation 13.7 % (11.5-14.5); RDW Standard Deviation 44.6 fL (36.4-46.3); Red Blood Count 5.25 M/uL (4.7-6.1); White Blood Count 10.62 K/uL (4.8-10.8)
[2021-11-04 15:07] LABS: INR 1.1 (0.9-1.1); Partial Thromboplastin Ratio 1.1; Partial Thromboplastin Time 29.1 Seconds (21.0-31.0); Prothrombin Time 11.1 Seconds (9.0-12.0)
[2021-11-04 15:13] LABS: Alanine Aminotransferase 28 (12-78); Albumin Level 3.9 gm/dl (3.4-5.0); Aspartate Aminotransferase 18 U/L (15-37); BUN Creatinine Ratio 14.3 (10-20); Blood Urea Nitrogen 15 mg/dl (7-18); Calcium 10.4 mg/dl (8.5-10.1); Carbon Dioxide 29 mmol/L (21-32); Chloride 107 mmol/L (98-107); Creatinine Clr Calc Pharmacy 69.6 ml/min; Est GFR (African American) 81.4 ml/min; Est GFR (Non-African American) 70.2 ml/min; Glucose 86 mg/dl (70-99); Magnesium 1.8 mg/dl (1.8-2.4); Potassium 4.1 mmol/L (3.5-5.1); Sodium 140 mmol/L (136-145)
[2021-11-04 15:18] LABS: Albumin Globulin Ratio 1.1 (0.9-2); Alkaline Phosphatase 70 U/L (45-117); Bilirubin,Total 0.5 mg/dl (0.2-1); Globulin 3.7 gm/dl (2.5-4.0); Total Protein 7.6 gm/dl (6.4-8.2); Troponin I < 0.015 ng/ml (0-0.045)
[2021-11-04] MEDS ORDERED: Heparin IV Adult Wt-Based Standard WITH Bolus Protocol IV STA (15:47)
[2021-11-04 15:54] LABS: Influenza A virus by PCR Negative (Neg); Influenza B virus by PCR Negative (Neg); RSV by PCR Negative (Neg); SARS CoV2 RNA(COVID-19) InHosp NEGATIVE (Negative)
[2021-11-04 15:59] LABS: NT Pro B Type Natriuretic Pept 468 pg/ml (0-1800)
[2021-11-04] MEDS ORDERED: HEPARIN SOD (PORCINE) 1000 UNIT/ML IV ONE (16:02)
[2021-11-04] MEDS ORDERED: HEPARIN SODIUM/DEXTROSE 25,000 UNITS/500 ML BAG IV SCH (16:15)
--- NOTE | 2021-11-04 16:42 | Emergency Department Note ---
Impression & Plan Hypoxia, Acute dyspnea, Cough, Frequent PVCs ED Provider Note CHIEF COMPLAINT: Shortness of breath, cough HISTORY OF PRESENT ILLNESS: This 76-year-old male patient presents to the emergency department with complaints of shortness of breath and cough. Patient states he was tested for Covid yesterday at [facility] but has yet to hear back. He was unable to sleep last night secondary to the shortness of breath. He states it is difficult to breathe, particularly when lying down. He denies any fevers, chills, nausea or vomiting. He has had no chest pain necessarily but does complain of some pressure. Patient states he did smoke but quit 40 years ago. He does not wear home oxygen. He denies any sniffing and cardiac or pulmonary history. REVIEW OF SYSTEMS: A review of systems was performed with positives and pertinent negatives listed in the history of present illness. 10 systems were reviewed and are otherwise negative. ALLERGIES: see below MEDICATIONS: see below PMH: see below SOCIAL HISTORY: see below DDx:Reactive airway disease, pneumonia, pneumothorax, COPD, CHF, infections, cardiac ischemia, pulmonary embolism, musculoskeletal, gastrointestinal, as well as other pathologies. PHYSICAL EXAM: Vital signs reviewed. General: Well-appearing 76-year-old male, in no significant distress. Sitting up in a chair HEENT: No scleral icterus, PERRLA, neck supple. Atraumatic. Cardiovascular: Regular rate and rhythm, no extra sounds. Frequent ectopy Pulmonary: Clear to auscultation bilaterally, normal work of breathing. Dry cough Abdomen: Soft, nontender, nondistended, positive bowel sounds. Musculoskeletal: Atraumatic, no peripheral edema. Neurologic: Patient awake alert and oriented x 3, speech is clear Skin: Warm, dry, no rash EMERGENCY DEPARTMENT COURSE/MDM: This patient was evaluated and appeared to be in no significant distress. Patient was initially evaluated in the subwait of the A pod due to unknown COVID status. Records from [facility] were obtained in the COVID swab is negative. Chest x-ray was performed and is read as mild pulmonary edema. Patient was given 40 mg of IV leg 6 he has mildly tachycardia cardiac and hypertensive. Patient's laboratory work reveals a negative troponin and normal BNP. He does require supplemental oxygenation as he was noted to be in the mid 80s by nursing staff upon obtaining an EKG. EKG reveals no evidence of acute ischemia however there are frequent PVCs in a pattern of bigeminy. P razaient was placed on 2 L via nasal cannula. Apparently the patient was taken off of his oxygen and ambulated to the bathroom and upon return was 76% on room air. Patient was then placed again on nasal cannula oxygen. His Covid PCR has returned negative as well as influenza and RSV. CT angiogram of the chest was performed and is negative at this time. There is no focal lung consolidation to suggest pneumonia. The etiology of the hypoxia is unclear. Patient was given a DuoNeb treatment and IV dexamethasone. Consultation with the hospitalist service was placed and the patient will be evaluated for further management. He is aware of the plan and agrees. MONITORING: An order for cardiac monitoring was placed and the patient is noted to be in a normal sinus rhythm with frequent PVCs at 100 beats per minute. RADIOLOGY: See below EKG: Sinus rhythm with frequent PVCs in a pattern of bigeminy at 95 bpm. QTC is 422, normal ST segments. Normal axis. When compared to April 122018, PVCs are new. DISPOSITION: Admission Past Med/Surg History Medical History Asthma Dyslipidemia GERD (gastroesophageal reflux disease) H/O tobacco use, presenting hazards to health HTN (hypertension) Surgical History History of hernia repair History of rotator cuff surgery Family History Brother Coronary heart disease Mother Coronary heart disease Father AAA (abdominal aortic aneurysm) Sister Coronary heart disease Other Family history non-contributory Myocardial infarction Social History Smoking Status: Never smoker Second Hand Exposure: No; Hx Alcohol Use: Yes Hx Substance Use: No Preferred Language: Lithuanian Communication Ability: Effective Traffic Counter Required: No Beliefs That Will Affect Care: Restorationism Restorationism Beliefs: "I'm a [place]" Current Living Situation: Spouse Feels Safe at Home: Yes Assistive Devices: Denture - Upper, Denture - Lower and Glasses Allergies Allergies Allergy/AdvReac Type Severity Reaction Status Date / Time Penicillins Allergy Intermediate HIVES Unverified 11/04/21 16:03 banana Allergy Unknown Unverified 11/04/21 16:03 Home Meds Home Medications Medication Instructions Recorded Confirmed ascorbic acid (vitamin C) 500 mg 500 mg PO DAILY 01/07/19 11/04/21 tablet (Vitamin C) atorvastatin 20 mg tablet 20 mg PO QPM 01/07/19 11/04/21 budesonide-formoterol HFA 80 2 puff INHALATION DAILY 01/07/19 11/04/21 mcg-4.5 mcg/actuation aerosol inhaler (Symbicort) fenofibrate nanocrystallized 145 145 mg PO DAILY 01/07/19 11/04/21 mg tablet (Tricor) fluticasone propionate 50 1 spray INTRANASAL DAILY 01/07/19 11/04/21 mcg/actuation nasal spray,suspension (Flonase Allergy Relief) losartan 50 mg tablet 50 mg PO DAILY 01/07/19 11/04/21 multivitamin 1 tab PO DAILY 01/07/19 11/04/21 paroxetine HCl 20 mg tablet (Paxil) 20 mg PO DAILY 01/07/19 11/04/21 gabapentin 300 mg capsule 300 mg PO HS 11/04/21 11/04/21 gabapentin 600 mg tablet 600 mg PO TID 11/04/21 11/04/21 omeprazole 20 mg capsule,delayed 20 mg PO DAILY 11/04/21 11/04/21 release Results & Data (ED) Vital Signs Vital Signs - 24 hr 11/04/21 12:48 11/04/21 14:38 11/04/21 14:44 Temperature 37.4 C Temperature Source Temporal Artery Scan Pulse Rate 100 H Pulse Rate [Right Finger] Pulse Rate from SpO2 Sensor Pulse Rhythm [Right Finger] Respiratory Rate 20 Respiratory Effort / Characteristics Non-Labored Respiratory Depth Blood Pressure 159/86 H Blood Pressure Mean 110 Pulse Oximetry 93 86 L 95 Oxygen Delivery Method Room Air Room Air Nasal Cannula Oxygen Flow Rate 2 Sepsis Recent Fever Within 48 Hours No Sepsis New/Unexplained Change in Mental Status No Sepsis Action Taken by Nursing No Action Required Oxygen Flow Rate - Titration Pulse Oximetry Post Tiitration 11/04/21 15:32 11/04/21 16:00 11/04/21 16:02 Temperature Temperature Source Pulse Rate Pulse Rate [Right Finger] 78 Pulse Rate from SpO2 Sensor 64 Pulse Rhythm [Right Finger] Regular Respiratory Rate 20 15 Respiratory Effort / Characteristics Non-Labored Respiratory Depth Normal Blood Pressure Blood Pressure Mean Pulse Oximetry 78 L 78 L 95 Oxygen Delivery Method Room Air Room Air Nasal Cannula Oxygen Flow Rate 3 Sepsis Recent Fever Within 48 Hours Sepsis New/Unexplained Change in Mental Status Sepsis Action Taken by Nursing Oxygen Flow Rate - Titration 3 Pulse Oximetry Post Tiitration 96 11/04/21 16:10 Temperature Temperature Source Pulse Rate Pulse Rate [Right Finger] Pulse Rate from SpO2 Sensor 71 Pulse Rhythm [Right Finger] Respiratory Rate 19 Respiratory Effort / Characteristics Respiratory Depth Blood Pressure Blood Pressure Mean Pulse Oximetry 95 Oxygen Delivery Method Oxygen Flow Rate Sepsis Recent Fever Within 48 Hours Sepsis New/Unexplained Change in Mental Status Sepsis Action Taken by Nursing Oxygen Flow Rate - Titration Pulse Oximetry Post Tiitration Home Medications Current Medication List: was personally reviewed by me Laboratory Data Attestation: I reviewed the patient's lab results. Result diagrams: 11/04/21 14:42 11/04/21 14:42 Lab Results 11/04/21 11/04/21 11/04/21 Range/Units 14:42 14:42 14:42 WBC 10.62 (4.8-10.8) K/uL RBC 5.25 (4.7-6.1) M/uL Hgb 15.0 (14.0-18.0) g/dL Hct 46.5 (42-52) % MCV 88.6 (80-100) fL MCH 28.6 (25-34) pg MCHC 32.3 (32-36) g/dL RDW Std Deviation 44.6 (36.4-46.3) fL RDW Coeff of Mariano 13.7 (11.5-14.5) % Plt Count 224 (130-400) K/uL MPV 10.7 H (7.4-10.4) fL Immature Gran % (Auto) 0.3 % Neut % (Auto) 71.0 % Lymph % (Auto) 16.2 % [place] % (Auto) 8.5 % Eos % (Auto) 3.8 % Baso % (Auto) 0.2 % Neut # (Auto) 7.55 H (1.4-6.5) K/uL Lymph # (Auto) 1.72 (1.2-3.4) K/uL [place] # (Auto) 0.90 H (0.11-0.59) K/uL Eos # (Auto) 0.40 (0-0.5) K/uL Baso # (Auto) 0.02 (0-0.2) K/uL Immature Gran # (Auto) 0.03 H (0.00-0.02) K/uL PT 11.1 (9.0-12.0) Seconds INR 1.1 (0.9-1.1) APTT 29.1 (21.0-31.0) Seconds PTT Ratio 1.1 Sodium 140 (136-145) mmol/L Potassium 4.1 (3.5-5.1) mmol/L Chloride 107 (98-107) mmol/L Carbon Dioxide 29 (21-32) mmol/L Anion Gap 4.0 (3-11) BUN 15 (7-18) mg/dl Creatinine 1.03 (0.6-1.4) mg/dl Est Cr Clr Drug Dosing 69.6 ml/min Est GFR ( Amer) 81.4 ml/min Est GFR (Non-Af Amer) 70.2 ml/min BUN/Creatinine Ratio 14.3 (10-20) Glucose 86 (70-99) mg/dl Calcium 10.4 H (8.5-10.1) mg/dl Magnesium 1.8 (1.8-2.4) mg/dl Total Bilirubin 0.5 (0.2-1) mg/dl AST 18 (15-37) U/L ALT 28 (12-78) Alkaline Phosphatase 70 (45-117) U/L Troponin I < 0.015 (0-0.045) ng/ml NT-Pro-B Natriuret Pep 468 (0-1800) pg/ml Total Protein 7.6 (6.4-8.2) gm/dl Albumin 3.9 (3.4-5.0) gm/dl Globulin 3.7 (2.5-4.0) gm/dl Albumin/Globulin Ratio 1.1 (0.9-2) Urine Color Urine Appearance (Clear) Urine pH (4.5-7.5) Ur Specific [place] (1.000-1.030) Urine Protein (Negative) Urine Glucose (UA) (Negative) Urine Ketones (Negative) Urine Blood (Negative) Urine Nitrite (Negative) Urine Bilirubin (Negative) Urine Urobilinogen (Negative) Ur Leukocyte Esterase (Negative) SARS-CoV-2 (PCR) (Negative) Influenza Type A (PCR) (Neg) Influenza Type B (PCR) (Neg) RSV (RT-PCR) (Neg) 11/04/21 11/04/21 Range/Units 15:12 16:51 WBC (4.8-10.8) K/uL RBC (4.7-6.1) M/uL Hgb (14.0-18.0) g/dL Hct (42-52) % MCV (80-100) fL MCH (25-34) pg MCHC (32-36) g/dL RDW Std Deviation (36.4-46.3) fL RDW Coeff of Mariano (11.5-14.5) % Plt Count (130-400) K/uL MPV (7.4-10.4) fL Immature Gran % (Auto) % Neut % (Auto) % Lymph % (Auto) % [place] % (Auto) % Eos % (Auto) % Baso % (Auto) % Neut # (Auto) (1.4-6.5) K/uL Lymph # (Auto) (1.2-3.4) K/uL [place] # (Auto) (0.11-0.59) K/uL Eos # (Auto) (0-0.5) K/uL Baso # (Auto) (0-0.2) K/uL Immature Gran # (Auto) (0.00-0.02) K/uL PT (9.0-12.0) Seconds INR (0.9-1.1) APTT (21.0-31.0) Seconds PTT Ratio Sodium (136-145) mmol/L Potassium (3.5-5.1) mmol/L Chloride (98-107) mmol/L Carbon Dioxide (21-32) mmol/L Anion Gap (3-11) BUN (7-18) mg/dl Creatinine (0.6-1.4) mg/dl Est Cr Clr Drug Dosing ml/min Est GFR ( Amer) ml/min Est GFR (Non-Af Amer) ml/min BUN/Creatinine Ratio (10-20) Glucose (70-99) mg/dl Calcium (8.5-10.1) mg/dl Magnesium (1.8-2.4) mg/dl Total Bilirubin (0.2-1) mg/dl AST (15-37) U/L ALT (12-78) Alkaline Phosphatase (45-117) U/L Troponin I (0-0.045) ng/ml NT-Pro-B Natriuret Pep (0-1800) pg/ml Total Protein (6.4-8.2) gm/dl Albumin (3.4-5.0) gm/dl Globulin (2.5-4.0) gm/dl Albumin/Globulin Ratio (0.9-2) Urine Color Yellow Urine Appearance Clear (Clear) Urine pH 7.0 (4.5-7.5) Ur Specific [place] 1.006 (1.000-1.030) Urine Protein Negative (Negative) Urine Glucose (UA) Negative (Negative) Urine Ketones Negative (Negative) Urine Blood Negative (Negative) Urine Nitrite Negative (Negative) Urine Bilirubin Negative (Negative) Urine Urobilinogen Negative (Negative) Ur Leukocyte Esterase Negative (Negative) SARS-CoV-2 (PCR) NEGATIVE (Negative) Influenza Type A (PCR) Negative (Neg) Influenza Type B (PCR) Negative (Neg) RSV (RT-PCR) Negative (Neg) Administered Medications Discontinued Medications Dexamethasone Sodium Phosphate (DexamethasonePf 10 Mg/Ml Vial) 6 mg IV NOW ONE Stop: 11/04/21 13:49 Last Admin: 11/04/21 14:47 Dose: 6 mg Documented by: [id number] Furosemide (Furosemide 40 Mg/4 Ml Vial) 40 mg IV ONE ONE Stop: 11/04/21 14:45 Last Admin: 11/04/21 15:41 Dose: 40 mg Documented by: [id number] Ioversol (Optiray 320 125ml) 85 ml IV ONCE ONE Stop: 11/04/21 16:50 Last Admin: 11/04/21 16:49 Dose: 85 ml Documented by: [id number] Imaging Data Radiologist's Impression: Chest X-Ray 11/04/21 13:48 XR chest 1V portable CLINICAL HISTORY: Dyspnea TECHNIQUE: Single frontal radiograph of the chest was obtained. Comparison: Comparison is made to chest one view 04/12/2019 FINDINGS: No lines and tubes are seen. Calcified aortic knob is seen. Elevation of the right hemidiaphragm is seen. There is mild prominence of the pulmonary vasculature. No evidence of pleural effusion or pneumothorax. IMPRESSION: Mild pulmonary edema. ACT 112: Negative or not required by law. Electronically signed by: Mario Morris M.D. 11/04/2021 2:35 PM Blood Pressure Blood Pressure Findings: Elevated blood pressure Blood Pressure Disposition: further management by hospitalist Discharge Plan Visit Data Chief Complaint: Shortness of Breath/Dyspnea Stated Complaint: SOB, PENDING COVID RESULTS ED Provider: Mary Dudley Discharge Problem: Hypoxia, Acute dyspnea, Cough, Frequent PVCs Forms Stand Alone Forms: [facility] [employer] Prescriptions Prescriptions: No Action multivitamin Tablet 1 tab PO DAILY RF: 0 losartan 50 mg Tablet 50 mg PO DAILY RF: 0 atorvastatin 20 mg Tablet 20 mg PO QPM RF: 0 ascorbic acid (vitamin C) [Vitamin C] 500 mg Tablet 500 mg PO DAILY RF: 0 paroxetine HCl [Paxil] 20 mg Tablet 20 mg PO DAILY RF: 0 fluticasone propionate [Flonase Allergy Relief] 50 mcg/actuation [place],Suspension 1 spray INTRANASAL DAILY RF: 0 fenofibrate nanocrystallized [Tricor] 145 mg Tablet 145 mg PO DAILY RF: 0 budesonide-formoterol [Symbicort] 80-4.5 mcg/actuation Hfa Aerosol Inhaler 2 puff INHALATION DAILY RF: 0 omeprazole 20 mg capsule,delayed release(DR/EC) 20 mg PO DAILY RF: 0 gabapentin 600 mg tablet 600 mg PO TID RF: 0 gabapentin 300 mg capsule 300 mg PO HS RF: 0 Referrals Referrals: Wayne Alexander DO [Primary Care Provider] -
[2021-11-04] MEDS ORDERED: OPTIRAY 320 125ml IV ONE (16:49)
[2021-11-04 16:56] LABS: Appearance Urine Clear (Clear); Bilirubin Urine Negative (Negative); Blood Urine Negative (Negative); Color Urine Yellow; Glucose Urine UA Negative (Negative); Ketones Urine Negative (Negative); Leukocyte Esterase Urine Negative (Negative); Nitrite Urine Negative (Negative); Protein Urine Negative (Negative); Specific Gravity Urine 1.006 (1.000-1.030); Urobilinogen Urine Negative (Negative)
--- NOTE | 2021-11-04 17:03 | CT Scan Report ---
CT ANGIOGRAPHY OF THE CHEST, PULMONARY EMBOLUS PROTOCOL CLINICAL HISTORY: Cough. Evaluate for pulmonary embolus. COMPARISON STUDY: Chest radiographs April 12, 2019 and November 04, 2021. TECHNIQUE: Following IV administration of 85 mL of Optiray, helical axial images of the chest were ob tained utilizing the pulmonary embolus protocol. Maximal intensity projections and sagittal and dk nal reformats were viewed on an independent 3D workstation. IV contrast was administered without com plication. Automated exposure control was utilized for the study. A dose lowering technique was uti lized adhering to the principles of ALARA. CT DOSE: 417.33 mGy.cm FINDINGS: No pulmonary emboli are identified although the segmental and subsegmental pulmonary arter ies are suboptimally assessed due to respiratory motion. There is no thoracic aortic dissection. No p ericardial effusion is noted. Size of the heart is normal. Moderate coronary artery calcification is present. No enlarged axillary, mediastinal or hilar lymph nodes are present. There is bilateral gynec omastia. Moderate elevation of the right hemidiaphragm is unchanged since chest radiograph April 12 19. Right middle lobe and right lower lobe opacity reflects atelectasis. There is minimal groundglass opacity within the left lower lobe. There is a possible 8 mm left lower lobe nodule on image 105 of [id number]. Minimal secretions within the bilateral mainstem bronchi are noted. There is no pneumothorax or pleural effusion. Gallstones are noted within the gallbladder. IMPRESSION: 1. No pulmonary emboli identified although segmental and subsegmental pulmonary arteries suboptimally assessed due to respiratory motion. 2. Moderate elevation of the right hemidiaphragm, unchanged since radiographs of April 12, 2019. 3. Minimal groundglass opacity within the left lower lobe. This likely reflects atelectasis although an infectious process could appear similar. 4. Possible 8 mm left lower lobe nodule. A follow-up chest CT in 6 months is recommended. ACT 112: Negative or not required by law. Electronically signed by: Tae Sutton M.D. 11/04/2021 5:02 PM
[2021-11-04] MEDS ORDERED: MAGNESIUM SULFATE / D5W 1 GM/100 ML BAG IV STA (17:06)
--- NOTE | 2021-11-04 17:10 | History & Physical Report ---
Date of Service November 04, 2021 Assessment & Plan (1) Asthma exacerbation: Plan: ?exacerbated due to raking leaves last week Dexamethasone 6mg IV given in ER, Continue with Solu-medrol 40mg IV BID Duonebs QID Continue his usual maintenance Symbicort (2) Hypoxia: Plan: Aim O2 sats > 90% Secondary to asthma exacerbation as above Do not suspect CHF and will discontinue further lasix (3) Bigeminy: Plan: Monitor on telemetry overnight. Consider TTE in AM if excessive burden. Would avoid metoprolol given asthma as above. Doubtful symptomatic from this (4) GERD (gastroesophageal reflux disease): Plan: Switch omeprazole for pantoprazole per hospital formulary (5) Depression: Plan: Continue paroxetine (6) Dyslipidemia: Plan: Continue atorvastatin (7) Lung nodule, solitary: Plan: Follow up CT in 6 months recommended Plan: VTE Prophylaxis - deferred, low risk given suspected short hospital stay, consider chemical prophylaxis if stay is prolonged Diet - Low Na, heart healthy Disposition - admit to med/tele Admission and Anticipated Discharge Date Admission Date: November 04, 2021 History of Present Illness Chief Complaint: Cough and shortness of breath Primary Care Provider: Wayne Alexander DO Gregg Skinner is a 76 year old male who presentso the ER with shortness of breath and chest discomfort with concern for COVID-19 pneumonia due to positive exposure last week. He reports worsening dry cough and shortness of breath progressively getting worse. He has noticed some wheezing since raking leaves last week. He has not tried using his albuterol inhaler for this as he has mainly been concerned about COVID. In the ER CT shorted moderate elevation of right hemidiaphragm although this is not new, minimal groundglass opacity in left lower lobe, no pulmonary emboli. He was given Lasix for concern for heart failure however no pulmonary edema noted on CXR and CT, no weight gain or leg swelling noticed by patient. He is having bigeminy on the monitor in the ER. He is hypoxic to the high 70s on exertion and high 80s at rest on room air. He was referred to medicine for admission and ongoing management of hypoxia without a specific cause. Allergies Allergy/AdvReac Type Severity Reaction Status Date / Time Penicillins Allergy Intermediate HIVES Unverified 11/04/21 16:03 banana Allergy Unknown Unverified 11/04/21 16:03 Home Medications Medication Instructions Recorded Confirmed Type ascorbic acid (vitamin C) 500 mg 500 mg PO DAILY 01/07/19 11/04/21 History tablet (Vitamin C) atorvastatin 20 mg tablet 20 mg PO QPM 01/07/19 11/04/21 History budesonide-formoterol HFA 80 2 puff INHALATION DAILY 01/07/19 11/04/21 History mcg-4.5 mcg/actuation aerosol inhaler (Symbicort) fenofibrate nanocrystallized 145 145 mg PO DAILY 01/07/19 11/04/21 History mg tablet (Tricor) fluticasone propionate 50 1 spray INTRANASAL DAILY 01/07/19 11/04/21 History mcg/actuation nasal spray,suspension (Flonase Allergy Relief) losartan 50 mg tablet 50 mg PO DAILY 01/07/19 11/04/21 History multivitamin 1 tab PO DAILY 01/07/19 11/04/21 History paroxetine HCl 20 mg tablet (Paxil) 20 mg PO DAILY 01/07/19 11/04/21 History gabapentin 300 mg capsule 300 mg PO HS 11/04/21 11/04/21 History gabapentin 600 mg tablet 600 mg PO TID 11/04/21 11/04/21 History omeprazole 20 mg capsule,delayed 20 mg PO DAILY 11/04/21 11/04/21 History release Past Med/Surg History Medical History Asthma Dyslipidemia GERD (gastroesophageal reflux disease) H/O tobacco use, presenting hazards to health HTN (hypertension) Surgical History History of hernia repair History of rotator cuff surgery Family History Brother Coronary heart disease Mother Coronary heart disease Father AAA (abdominal aortic aneurysm) Sister Coronary heart disease Other Family history non-contributory Myocardial infarction Social History Smoking Status: Never smoker Second Hand Exposure: No; Do You Dip or Chew Tobacco: No (30 some years ago); Tobacco Cessation Education Requested by Patient: No Hx Alcohol Use: Yes Hx Substance Use: No Preferred Language: Russian Communication Ability: Effective Commercial Singer Required: No Beliefs That Will Affect Care: Yazidi Yazidi Beliefs: "I'm a Bretheran" Current Living Situation: Spouse Other Information That Helps Us Care for You: No Feels Safe at Home: Yes Assistive Devices: Denture - Upper, Denture - Lower, Glasses and Oxygen - at Night Review of Systems Review of Systems: All systems reviewed & are unremarkable except as noted in HPI & below Physical Exam Constitutional: WD/WN, vitals as above Eyes: + anicteric sclerae; normal pupil size Respiratory: normal respiratory effort; no respiratory distress Auscultation: + wheezes (mid-end exp wheezing throughout) Cardiovascular: RRR, no murmur, no edema (frequent skipped beats (PVC on monitor, mostly bigeminy)) Gastrointestinal (Abdomen): normal bowel sounds, soft, nontender, no hepatosplenomegaly Musculoskeletal: no cyanosis or clubbing, extremities motor strength 5/5 Skin: no rashes, warm and dry Neurologic: moves all extremities and awake; not confused Psychiatric: A+Ox3, euthymic affect Genitourinary: no CVA tenderness Results & Data Results & Data ([facility]) Vital Signs (Past 12 Hours) Vital Signs Temp Pulse Pulse Resp BP Pulse Ox 11/04/21 16:10 19 95 11/04/21 16:02 15 95 11/04/21 16:00 78 20 78 L 11/04/21 15:32 78 L 11/04/21 14:44 95 11/04/21 14:38 86 L 11/04/21 12:48 37.4 C 100 H 20 159/86 H 93 Laboratory Results Abnormal lab results 11/04/21 11/04/21 Range/Units 14:42 14:42 MPV 10.7 H (7.4-10.4) fL Neut # (Auto) 7.55 H (1.4-6.5) K/uL George # (Auto) 0.90 H (0.11-0.59) K/uL Immature Gran # (Auto) 0.03 H (0.00-0.02) K/uL Calcium 10.4 H (8.5-10.1) mg/dl Diagnostic Findings XR chest 1V portable CLINICAL HISTORY: Dyspnea TECHNIQUE: Single frontal radiograph of the chest was obtained. Comparison: Comparison is made to chest one view 04/12/2019 FINDINGS: No lines and tubes are seen. Calcified aortic knob is seen. Elevation of the right hemidiaphragm is seen. There is mild prominence of the pulmonary vasculature. No evidence of pleural effusion or pneumothorax. IMPRESSION: Mild pulmonary edema. CT ANGIOGRAPHY OF THE CHEST, PULMONARY EMBOLUS PROTOCOL CLINICAL HISTORY: Cough. Evaluate for pulmonary embolus. COMPARISON STUDY: Chest radiographs April 12, 2019 and November 04, 2021. TECHNIQUE: Following IV administration of 85 mL of Optiray, helical axial images of the chest were obtained utilizing the pulmonary embolus protocol. Maximal intensity projections and sagittal and coronal reformats were viewed on an [employer] 3D workstation. IV contrast was administered without complication. Automated exposure control was utilized for the study. A dose lowering technique was utilized adhering to the principles of ALARA. CT DOSE: 417.33 mGy.cm FINDINGS: No pulmonary emboli are identified although the segmental and subsegmental pulmonary arteries are suboptimally assessed due to respiratory motion. There is no thoracic aortic dissection. No pericardial effusion is noted. Size of the heart is normal. Moderate coronary artery calcification is present. No enlarged axillary, mediastinal or hilar lymph nodes are present. There is bilateral gynecomastia. Moderate elevation of the right hemidiaphragm is unchanged since chest radiograph April 12, 2019. Right middle lobe and right lower lobe opacity reflects atelectasis. There is minimal groundglass opacity within the left lower lobe. There is a possible 8 mm left lower lobe nodule on image 105 of 293. Minimal secretions within the bilateral mainstem bronchi are noted. There is no pneumothorax or pleural effusion. Gallstones are noted within the gallbladder. IMPRESSION: 1. No pulmonary emboli identified although segmental and subsegmental pulmonary arteries suboptimally assessed due to respiratory motion. 2. Moderate elevation of the right hemidiaphragm, unchanged since radiographs of April 12, 2019. 3. Minimal groundglass opacity within the left lower lobe. This likely reflects atelectasis although an infectious process could appear similar. 4. Possible 8 mm left lower lobe nodule. A follow-up chest CT in 6 months is recommended. Medications Administered ER Medications Given: Dexamethasone 6mg IV Furosemide 40mg IV ECG Indication: SOB/dyspnea Rate (beats per minute): 95 Rhythm: normal sinus Findings: + PVC (bigeminy) Comparison ECG Date: from (April 12, 2021) Change: the following changes noted (Bigeminy is now present) Code Status & VTE Plan Code Status Full VTE Prophylaxis Plan VTE Prophylaxis will be ordered: No PG Care Time/CCT Total # of Minutes Spent Total Time Spent with Patient: Total time spent is greater than 50% in coordination of care (as documented) at patient's floor/unit and/or counseling patient: Coding Level of Care Code 26348 Initial Inpt Care Lvl 3 Diagnoses Asthma exacerbation J45.901 Bigeminy I49.8 GERD (gastroesophageal reflux disease) K21.9 Depression F32.9 Dyslipidemia E78.5 Hypoxia R09.02 Lung nodule, solitary R91.1
[2021-11-04] MEDS ORDERED: FUROSEMIDE 40 MG/4 ML VIAL IV STA (17:22)
[2021-11-04] MEDS ORDERED: ALBUT/IPRATROP 3MG/0.5MG NEB 3 ML VIAL NEB STA (17:29)
[2021-11-04 17:32] LABS: D Dimer 310 ug/L FEU (0-500)
[2021-11-04] MEDS ORDERED: ONDANSETRON INJ 2 MG/ML 2 ML VIAL IV PRN (19:21)
[2021-11-04] MEDS ORDERED: ACETAMINOPHEN 325 MG TAB PO PRN (19:21)
[2021-11-04] MEDS ORDERED: POLYETHYLENE (MIRALAX) 17 GM PACK PO PRN (19:21)
[2021-11-04] MEDS: methylPREDNISolone 40 MG in SYRINGE 0 ML IV SCH (20:42)
[2021-11-04] MEDS ORDERED: GABAPENTIN 600 MG TAB PO SCH (21:00)
[2021-11-04] MEDS: ATORVASTATIN 20 MG TAB PO SCH (22:50)
[2021-11-04] MEDS: GABAPENTIN 600 MG TAB PO SCH (22:50)
[2021-11-04] MEDS: GABAPENTIN 300 MG CAP PO SCH (22:50)
[2021-11-04] MEDS: ALBUT/IPRATROP 3MG/0.5MG NEB 3 ML VIAL NEB SCH (22:52)
[2021-11-05] MEDS ORDERED: GABAPENTIN 600 MG TAB PO SCH (08:00)
[2021-11-05] MEDS: PANTOprazole 40 MG TAB PO SCH (08:03)
[2021-11-05] MEDS: PARoxetine HCL 20 MG TAB PO SCH (08:03)
[2021-11-05] MEDS: FENOFIBRATE NANOCRYSTALLIZED 145 MG TABLET PO SCH (08:03)
[2021-11-05] MEDS: LOSARTAN POTASSIUM 50 MG TAB PO SCH (08:03)
[2021-11-05] MEDS: FLUTICASONE PROPIONATE NA SPR 16 GM BTL NAE SCH (08:03)
[2021-11-05] MEDS: MULTIVITAMIN TAB PO SCH (08:03)
[2021-11-05] MEDS: FLUTICASONE/VILANTEROL 100/25MCG 14 PUFFS/INHALER INH SCH (08:03)
[2021-11-05] MEDS: GABAPENTIN 600 MG TAB PO SCH ×3 (08:04→20:11)
[2021-11-05] MEDS: methylPREDNISolone 40 MG in SYRINGE 0 ML IV SCH ×2 (08:04→20:11)
[2021-11-05] MEDS: ALBUT/IPRATROP 3MG/0.5MG NEB 3 ML VIAL NEB SCH ×2 (10:56)
[2021-11-05] MEDS ORDERED: ALBUT/IPRATROP 3MG/0.5MG NEB 3 ML VIAL NEB PRN (10:59)
--- NOTE | 2021-11-05 12:32 | Hospitalist Progress Note ---
Date of Service November 05, 2021 Assessment & Plan (1) Asthma exacerbation: Plan: ?exacerbated due to raking leaves last week Solu-medrol 40mg IV BID, change to Prednisone 40mg PO tomorrow Duonemedhat QID Continue his usual maintenance Symbicort no wheezing, might be ready for discharge tomorrow (2) Hypoxia: Plan: Aim O2 sats > 90% Secondary to asthma exacerbation as above Do not suspect CHF and will discontinue further lasix he is stable on 2L, try to get down to room air (3) Bigeminy: Plan: Monitor on telemetry overnight. he has had this for years more often he has frequent PVCs (4) GERD (gastroesophageal reflux disease): Plan: Switch omeprazole for pantoprazole per hospital formulary (5) Depression: Plan: Continue paroxetine (6) Dyslipidemia: Plan: Continue atorvastatin (7) Lung nodule, solitary: Plan: Follow up CT in 6 months recommended Plan: VTE Prophylaxis - deferred, low risk given suspected short hospital stay, consider chemical prophylaxis if stay is prolonged Diet - Low Na, heart healthy Disposition - admit to med/tele Admission and Anticipated Discharge Date Admission Date: November 04, 2021 Subjective patient feeling a lot better, breathing easier eating well, no nausea, no fever, minimal cough, no chest pain reviewed tele, he is in bigeminy or frequent PVCs, he says he has had that for years no wheezing, could be ready for discharge tomorrow Review of Systems Review of Systems: All systems reviewed & are unremarkable except as noted in Subjective Respiratory: + cough, + dyspnea and + dyspnea on exertion Physical Exam Physical Exam: General: well developed, well nourished, no acute distress, comfortable Neck: supple, trachea midline, normal thyroid Lungs: clear to auscultation bilaterally, no wheezing, diminished sounds overall, normal respiratory effort, no accessory muscle use, no distress Heart: regular S1 and S2, no murmur, peripheral pulses normal, capillary refill normal, no edema Abdomen: soft, NT, ND, + BS, no hepatomegaly, normal to percussion Extremities: normal in appearance, no cyanosis, no petechiae, strength is 5/5 bilaterally Neuro: awake, cooperative, moves all extremities, no focal motor deficits, CN II-XII intact, sensation in extremities intact, normal speech Skin: warm, dry, no rash, normal turgor Psych: Awake, alert oriented x 3, euthymic affect Results & Data Results & Data ([facility]) Vital Signs (Past 12 Hours) Vital Signs Temp Pulse Resp BP BP Pulse Ox 11/05/21 10:57 90 16 93 11/05/21 10:52 36.7 C 90 18 134/80 93 11/05/21 07:26 36.6 C 81 18 151/67 H 91 11/05/21 04:07 36.9 C 84 18 117/60 93 Laboratory Results Laboratory Results - last 24 hr 11/04/21 11/04/21 11/04/21 14:42 14:42 14:42 WBC 10.62 RBC 5.25 Hgb 15.0 Hct 46.5 MCV 88.6 MCH 28.6 MCHC 32.3 RDW Std Deviation 44.6 RDW Coeff of Mariano 13.7 Plt Count 224 MPV 10.7 H Immature Gran % (Auto) 0.3 Neut % (Auto) 71.0 Lymph % (Auto) 16.2 [place] % (Auto) 8.5 Eos % (Auto) 3.8 Baso % (Auto) 0.2 Neut # (Auto) 7.55 H Lymph # (Auto) 1.72 [place] # (Auto) 0.90 H Eos # (Auto) 0.40 Baso # (Auto) 0.02 Immature Gran # (Auto) 0.03 H PT 11.1 INR 1.1 APTT 29.1 PTT Ratio 1.1 D-Dimer Sodium 140 Potassium 4.1 Chloride 107 Carbon Dioxide 29 Anion Gap 4.0 BUN 15 Creatinine 1.03 Est Cr Clr Drug Dosing 69.6 Est GFR ( Amer) 81.4 Est GFR (Non-Af Amer) 70.2 BUN/Creatinine Ratio 14.3 Glucose 86 Calcium 10.4 H Magnesium 1.8 Total Bilirubin 0.5 AST 18 ALT 28 Alkaline Phosphatase 70 Troponin I < 0.015 NT-Pro-B Natriuret Pep 468 Total Protein 7.6 Albumin 3.9 Globulin 3.7 Albumin/Globulin Ratio 1.1 Urine Color Urine Appearance Urine pH Ur Specific [place] Urine Protein Urine Glucose (UA) Urine Ketones Urine Blood Urine Nitrite Urine Bilirubin Urine Urobilinogen Ur Leukocyte Esterase SARS-CoV-2 (PCR) Influenza Type A (PCR) Influenza Type B (PCR) RSV (RT-PCR) 1211/04/21 11/04/21 14:42 15:12 16:51 WBC RBC Hgb Hct MCV MCH MCHC RDW Std Deviation RDW Coeff of Mariano Plt Count MPV Immature Gran % (Auto) Neut % (Auto) Lymph % (Auto) [place] % (Auto) Eos % (Auto) Baso % (Auto) Neut # (Auto) Lymph # (Auto) [place] # (Auto) Eos # (Auto) Baso # (Auto) Immature Gran # (Auto) PT INR APTT PTT Ratio D-Dimer 310 Sodium Potassium Chloride Carbon Dioxide Anion Gap BUN Creatinine Est Cr Clr Drug Dosing Est GFR ( Amer) Est GFR (Non-Af Amer) BUN/Creatinine Ratio Glucose Calcium Magnesium Total Bilirubin AST ALT Alkaline Phosphatase Troponin I NT-Pro-B Natriuret Pep Total Protein Albumin Globulin Albumin/Globulin Ratio Urine Color Yellow Urine Appearance Clear Urine pH 7.0 Ur Specific [place] 1.006 Urine Protein Negative Urine Glucose (UA) Negative Urine Ketones Negative Urine Blood Negative Urine Nitrite Negative Urine Bilirubin Negative Urine Urobilinogen Negative Ur Leukocyte Esterase Negative SARS-CoV-2 (PCR) NEGATIVE Influenza Type A (PCR) Negative Influenza Type B (PCR) Negative RSV (RT-PCR) Negative Medications Administered Current Inpatient Medications Acetaminophen (Acetaminophen 325 Mg Tab) 650 mg PO Q4H PRN PRN Reason: Pain or Fever Stop: 12/04/21 19:20 Albuterol (Albut/Ipratrop 3mg/0.5mg Neb 3 Ml Vial) 3 ml NEB QIDR PRN; Protocol PRN Reason: Shortness Of Breath Or Wheezing Stop: 12/04/21 19:20 Atorvastatin Calcium (Atorvastatin 20 Mg Tab) 20 mg PO QPM SALINAS Stop: 12/04/21 20:59 Last Admin: 11/04/21 22:50 Dose: 20 mg Documented by: Fenofibrate (Fenofibrate Nanocrystallized 145 Mg Tablet) 145 mg PO DAILY SALINAS Stop: 12/05/21 08:59 Last Admin: 11/05/21 08:03 Dose: 145 mg Documented by: Fluticasone Propionate (Fluticasone Propionate Na Spr 16 Gm Btl) 1 sprays SONI DAILY SALINAS Stop: 12/05/21 08:59 Last Admin: 11/05/21 08:03 Dose: 1 sprays Documented by: Fluticasone/Vilanterol (Fluticasone/Vilanterol 100/25mcg 14 Puffs/Inhaler) 1 puffs INH DAILY [facility]; Protocol Stop: 12/05/21 08:59 Last Admin: 11/05/21 08:03 Dose: 1 puffs Documented by: Gabapentin (Gabapentin 300 Mg Cap) 300 mg PO HS [facility] Stop: 12/04/21 20:59 Last Admin: 11/04/21 22:50 Dose: 300 mg Documented by: Gabapentin (Gabapentin 600 Mg Tab) 600 mg PO TID [facility] Stop: 12/04/21 20:59 Last Admin: 11/05/21 08:04 Dose: 600 mg Documented by: Methylprednisolone 40 mg/ (Syringe) 0.64 mls @ 1.5 mls/min IV BID [facility] Stop: 12/04/21 20:59 Last Admin: 11/05/21 08:04 Dose: 1.5 mls/min Documented by: Losartan Potassium (Losartan Potassium 50 Mg Tab) 50 mg PO DAILY [facility] Stop: 12/05/21 08:59 Last Admin: 11/05/21 08:03 Dose: 50 mg Documented by: Multivitamins (Multivitamin Tab) 1 tab PO QAM [facility] Stop: 12/05/21 08:59 Last Admin: 11/05/21 08:03 Dose: 1 tab Documented by: Ondansetron HCl (Ondansetron Inj 2 Mg/Ml 2 Ml Vial) 4 mg IV Q6H PRN PRN Reason: Nausea Stop: 12/04/21 19:20 Pantoprazole Sodium (Pantoprazole 40 Mg Tab) 40 mg PO DAILY [facility]; Protocol Stop: 12/05/21 08:59 Last Admin: 11/05/21 08:03 Dose: 40 mg Documented by: Paroxetine HCl (Paroxetine Hcl 20 Mg Tab) 20 mg PO DAILY [facility] Stop: 12/05/21 08:59 Last Admin: 11/05/21 08:03 Dose: 20 mg Documented by: Polyethylene Glycol (Polyethylene (Miralax) 17 Gm Pack) 17 gm PO DAILY PRN PRN Reason: Constipation Stop: 12/04/21 19:20 PG Care Time/CCT Total # of Minutes Spent Total Time Spent with Patient: Total time spent is greater than 50% in coordination of care (as documented) at patient's floor/unit and/or counseling patient: Coding Level of Care Code 47684 Subseq Hosp Care Lvl 2 Diagnoses Asthma exacerbation J45.901 Hypoxia R09.02 Bigeminy I49.8 GERD (gastroesophageal reflux disease) K21.9 Depression F32.9 Dyslipidemia E78.5 Lung nodule, solitary R91.1
[2021-11-05] MEDS: GABAPENTIN 300 MG CAP PO SCH (20:11)
[2021-11-05] MEDS: ATORVASTATIN 20 MG TAB PO SCH (20:11)
--- NOTE | 2021-11-06 06:39 | Electrocardiogram Report ---
Test Reason : Blood Pressure : / mmHG Vent. Rate : 095 BPM Atrial Rate : 095 BPM P-R Int : 206 ms QRS Dur : 086 ms QT Int : 336 ms P-R-T Axes : 075 069 064 degrees QTc Int : 422 ms Sinus rhythm with frequent Premature ventricular complexes in a pattern of bigeminy Otherwise normal ECG When compared with ECG of 12-APR-2019 14:05, Premature ventricular complexes are now Present Confirmed by Herman Adam ([id number]) on 11/06/2021 6:39:34 AM Referred By: Wayne Alexander Confirmed By:Herman Adam
[2021-11-06] MEDS: PARoxetine HCL 20 MG TAB PO SCH (08:46)
[2021-11-06] MEDS: MULTIVITAMIN TAB PO SCH (08:46)
[2021-11-06] MEDS: LOSARTAN POTASSIUM 50 MG TAB PO SCH (08:47)
[2021-11-06] MEDS: GABAPENTIN 600 MG TAB PO SCH ×2 (08:47→13:30)
[2021-11-06] MEDS: FENOFIBRATE NANOCRYSTALLIZED 145 MG TABLET PO SCH (08:47)
[2021-11-06] MEDS: PANTOprazole 40 MG TAB PO SCH (08:47)
[2021-11-06] MEDS: FLUTICASONE PROPIONATE NA SPR 16 GM BTL NAE SCH (08:48)
[2021-11-06] MEDS: FLUTICASONE/VILANTEROL 100/25MCG 14 PUFFS/INHALER INH SCH (08:48)
[2021-11-06] MEDS ORDERED: predniSONE 20 MG TAB PO SCH (09:00)
--- NOTE | 2021-11-06 11:04 | Discharge Summary ---
Date of Service November 06, 2021 Admission HPI Per Admitting Provider Gregg Skinner is a 76 year old male who presentso the ER with shortness of breath and chest discomfort with concern for COVID-19 pneumonia due to positive exposure last week. He reports worsening dry cough and shortness of breath progressively getting worse. He has noticed some wheezing since raking leaves last week. He has not tried using his albuterol inhaler for this as he has mainly been concerned about COVID. In the ER CT shorted moderate elevation of right hemidiaphragm although this is not new, minimal groundglass opacity in left lower lobe, no pulmonary emboli. He was given Lasix for concern for heart failure however no pulmonary edema noted on CXR and CT, no weight gain or leg swelling noticed by patient. He is having bigeminy on the monitor in the ER. He is hypoxic to the high 70s on exertion and high 80s at rest on room air. He was referred to medicine for admission and ongoing management of hypoxia without a specific cause. Principal Diagnosis Asthma exacerbation Acute hypoxic respiratory failure, resolved Discharge Exam General: well developed, well nourished, no acute distress, comfortable Neck: supple, trachea midline, normal thyroid Lungs: clear to auscultation bilaterally, no wheezing, diminished sounds overall, normal respiratory effort, no accessory muscle use, no distress Heart: regular S1 and S2, no murmur, peripheral pulses normal, capillary refill normal, no edema Abdomen: soft, NT, ND, + BS, no hepatomegaly, normal to percussion Extremities: normal in appearance, no cyanosis, no petechiae, strength is 5/5 bilaterally Neuro: awake, cooperative, moves all extremities, no focal motor deficits, CN II-XII intact, sensation in extremities intact, normal speech Skin: warm, dry, no rash, normal turgor Psych: Awake, alert oriented x 3, euthymic affect Discharge Data Allergies Allergy/AdvReac Type Severity Reaction Status Date / Time Penicillins Allergy Intermediate HIVES Unverified 11/04/21 16:03 banana Allergy Unknown Unverified 11/04/21 16:03 Consultations 11/04/21 16:59 ED Decision to Admit Stat Ordered Studies 11/04/21 16:09 CT angio chest PE protocol Stat Hospital Course (1) Asthma exacerbation: ?exacerbated due to raking leaves last week Solu-medrol 40mg IV BID, changed to Prednisone 40mg PO will taper Prednisone on discharge over 6 days Duonemedhat QID Continue his usual maintenance Symbicort no wheezing, ambulating in halls without hypoxia feels well, discharge to home (2) Hypoxia: Aim O2 sats > 90% Secondary to asthma exacerbation as above Do not suspect CHF and will discontinue further lasix he is stable on room air (3) Marlene: Monitor on telemetry overnight. he has had this for years more often he has frequent PVCs (4) GERD (gastroesophageal reflux disease): Switch omeprazole for pantoprazole per hospital formulary (5) Depression: Continue paroxetine (6) Dyslipidemia: Continue atorvastatin (7) Lung nodule, solitary: Follow up CT in 6 months recommended d/c to home Total Time Total Time Spent Total Time Spent (In Minutes): 31 minutes Discharge Plan Discharge Items Patient Disposition: Home - Self-Care Reason For Visit: MALRENE, ASTHMA EXACERBATION Discharge Diagnosis: Asthma exacerbation Shortness of breath Pulmonary (lung) nodule Condition on Discharge: Good Goals: complete taper of Prednisone stay well nourished, well hydrated Activity: Resume your previous activity Driving/Machine Use: No limitations Weightbearing: Full weightbearing Non-emergency contact: Primary Care Provider Call non-emergency contact if: you have any medication questions Follow-up/Referrals: Wayne Alexander, [Primary Care Provider] - 11/19/21 11:10 am () Diet: Regular Addtl Attending Provider Instructions: Medications: - PREDNISONE: taper as follows, 40mg x 2 days, 20mg x 2 days, 10mg x 2 days then stop Asthma exacerbation, dyspnea, hypoxia (low oxygen) you are stable on room air, lungs are clear, no wheezing at all CT of your chest showed no evidence of pneumonia, COVID was NEGATIVE responded well to Solu Medrol and nebulizers will discharge home on Prednisone, continue inhalers as prescribed follow up with Dr. Alexander in one week Lung nodule 8mm left lower lobe lung nodule incidentally found on CT of the chest recommend repeat CT of the chest in 6 months, Dr. Alexander can order this, would be due in April 2022 Pending Studies at Discharge: No Stand-Alone Forms: My [employer], Smoking Cessation Medications and DC Order Prescriptions: New prednisone 20 mg Tablet 40 mg PO UD 6 Days Qty: 7 RF: 0 Continued multivitamin Tablet 1 tab PO DAILY RF: 0 losartan 50 mg Tablet 50 mg PO DAILY RF: 0 atorvastatin 20 mg Tablet 20 mg PO QPM RF: 0 ascorbic acid (vitamin C) [Vitamin C] 500 mg Tablet 500 mg PO DAILY RF: 0 paroxetine HCl [Paxil] 20 mg Tablet 20 mg PO DAILY RF: 0 fluticasone propionate [Flonase Allergy Relief] 50 mcg/actuation Stark,Suspension 1 spray INTRANASAL DAILY RF: 0 fenofibrate nanocrystallized [Tricor] 145 mg Tablet 145 mg PO DAILY RF: 0 budesonide-formoterol [Symbicort] 80-4.5 mcg/actuation Hfa Aerosol Inhaler 2 puff INHALATION DAILY RF: 0 omeprazole 20 mg capsule,delayed release(DR/EC) 20 mg PO DAILY RF: 0 gabapentin 600 mg tablet 600 mg PO TID RF: 0 gabapentin 300 mg capsule 300 mg PO HS RF: 0 Discharge Orders: Discharge Order (Routine); Ordered 11/06/21 Ordered By: Mario Florian Admission Data Admit Date/Time: 11/04/21 17:33 Attending Provider: Mario Florian Admit Provider: Arnoldo Olson Primary Care Provider: Wayne Alexander Other Providers: Arnoldo Olson Other Interventions: Discharge Summary Assessment (RN) Last Done: 11/06/21 12:59 Coding Level of Care Code D/C DAY MANAGEMENT >30 MINS Diagnoses Asthma exacerbation J45.901 Hypoxia R09.02 Bigeminy I49.8 GERD (gastroesophageal reflux disease) K21.9 Depression F32.9 Dyslipidemia E78.5 Lung nodule, solitary R91.1
== END 2021-11-06 14:32 | disposition home or self-care (01) | DRG 202 ==
LOC: ED 12:32 → EDINP 17:33 → SUATTDRO 17:33 → 2N 19:23

== ENCOUNTER 2023-03-16 16:51 | Inpatient (IN) ==
[2023-03-16] MEDS ORDERED: ALBUT/IPRATROP 3MG/0.5MG NEB 3 ML VIAL INH STA (17:41)
[2023-03-16] MEDS ORDERED: methylPREDNISolone 125 MG/2 ML VIAL IV STA (17:41)
[2023-03-16 18:01] LABS: Basophils # (auto) 0.04 K/uL (0-0.2); Basophils % (auto) 0.3 %; Eosinophils # (auto) 0.02 K/uL (0-0.50); Eosinophils % (auto) 0.1 %; Hematocrit (blood only) 45.2 % (42.0-52.0); Hemoglobin 14.9 g/dl (14.0-18.0); Immature Granulocytes # (auto) 0.08 K/uL (0.01-0.20); Immature Granulocytes % (auto) 0.5 %; Lymphocytes # (auto) 1.42 K/uL (1.2-3.4); Lymphocytes % (auto) 8.9 %; Mean Corpuscular Hemoglobin 28.2 pg (25.0-34.0); Mean Corpuscular Volume 85.4 fL (80.0-100.0); Mean Platelet Volume 11.2 fL (9.4-12.4); Monocytes # (auto) 1.18 K/uL (0.11-0.59); Monocytes % (auto) 7.4 %; Neutrophils # (auto) 13.17 K/uL (1.40-6.50); Neutrophils % (auto) 82.8 %; Platelet Count 192 K/uL (130-400); RDW Standard Deviation 43.5 fL (36.4-46.3); Red Blood Count 5.29 M/uL (4.70-6.10); White Blood Count 15.91 K/ul (4.8-10.8)
[2023-03-16 18:19] LABS: Alanine Aminotransferase 18 U/L (7-52); Albumin Globulin Ratio 1.7 (0.9-2); Albumin Level 4.3 gm/dl (3.4-5.0); Alkaline Phosphatase 44 U/L (34-104); Anion Gap 9 (3-11); Aspartate Aminotransferase 22 U/L (13-39); BUN Creatinine Ratio 18.4 (10-20); Bilirubin,Total 1.1 mg/dl (0.2-1.0); Blood Urea Nitrogen 19 mg/dl (6-23); Calcium 9.9 mg/dl (8.6-10.3); Carbon Dioxide 27 mmol/L (21-32); Chloride 100 mmol/L (98-107); Est GFR (African American) 80.3 ml/min; Est GFR (Non-African American) 69.3 ml/min; Globulin 2.6 gm/dl (2.5-4.0); Glucose 132 mg/dl (70-99(Fasting)); Potassium 3.9 mmol/L (3.5-5.1); Sodium 136 mmol/L (136-145); Total Protein 6.9 gm/dl (6.0-8.3)
[2023-03-16 18:24] LABS: Troponin I High Sensitivity 16.2 pg/ml (0-20)
[2023-03-16 18:59] LABS: Adenovirus PCR Not Detected (NotDetected); Bordetella parapertussis PCR Not Detected (NotDetected); Bordetella pertussis PCR Not Detected (NotDetected); Chlamydia pneumoniae PCR Not Detected (NotDetected); Coronavirus 229E PCR Not Detected (NotDetected); Coronavirus CoV-2 (COVID19)PCR Not Detected (NotDetected); Coronavirus HKU1 PCR Not Detected (NotDetected); Coronavirus NL63 PCR Not Detected (NotDetected); Coronavirus OC43PCR Not Detected (NotDetected); Human Metapneumovirus PCR Not Detected (NotDetected); Influenza A PCR Not Detected (NotDetected); Influenza B PCR Not Detected (NotDetected); Mycoplasma pneumoniae PCR Not Detected (NotDetected); Parainfluenza Virus 1 PCR Not Detected (NotDetected); Parainfluenza Virus 2 PCR Not Detected (NotDetected); Parainfluenza Virus 3 PCR Not Detected (NotDetected); Parainfluenza Virus 4 PCR Not Detected (NotDetected); Respiratory Syncytial VirusPCR Not Detected (NotDetected)
[2023-03-16 19:06] LABS: Rhinovirus/Enterovirus PCR DETECTED (NotDetected)
--- NOTE | 2023-03-16 19:07 | XRay Report ---
SINGLE VIEW CHEST CLINICAL HISTORY: Dyspnea FINDINGS: An AP, portable, upright chest radiograph is compared to study dated 11/04/2021 and correla chely with chest CT dated 01/21/2023. The cardiomediastinal silhouette is unremarkable noting atheroscler otic calcification of the thoracic aorta. Chronic interstitial thickening similar to previous. There is chronic elevation of the right hemidiaphragm. Scarring/atelectasis is noted at the lung bases. No airspace consolidation or large pleural effusion is identified. No pneumothorax is seen. The skeletal structures are osteopenic. The bony thorax is grossly intact. IMPRESSION: No active disease in the chest. ACT 112: Negative or not required by law. Electronically signed by: Giorgio Brown M.D. 03/16/2023 7:06 PM
--- NOTE | 2023-03-16 19:43 | Emergency Department Note ---
Impression & Plan Hypoxia, Cough, Rhinovirus infection ED Provider Note INFORMANT: Patient and ED PROVIDER(S): Kris Rothman MD CHIEF COMPLAINT: Shortness of breath PLAN: Disposition: Admitted Condition: Good Outpatient prescription management: none Referral: None MEDICAL DECISION MAKING: Patient present because of shortness of breath. He was requiring supplemental oxygen to maintain his O2 saturations above 90. He had a chest x-ray performed. No focal findings were noted. The patient's symptoms were treated with DuoNeb and Solu-Medrol. Patient was reassessed and was doing well but still requiring supplemental oxygen. His CBC showed a leukocytosis. Chemistry panel was unremarkable. BNP was mildly elevated. Patient's ECG did show bigeminy. No acute ischemia was noted. The patient had a negative troponin. His bio fire testing revealed the presence of enterovirus/rhinovirus. Given his nonproductive cough I suspect that this is a component and his reactive airway history is also an issue. The patient will require further management in the hospital. Consultation was made with Dr. Magdaleno of the [facility] service. Patient was evaluated in the ER for further management. Discussed with commercial real estate manager After review of the information above and other included data, I feel the patient requires admission. Triage Nursing notes reviewed and agree them. Vital Signs: reviewed and remarkable for hypoxia and hypertension Prior /Outside records reviewed: none Differential diagnosis: Viral syndrome, reactive airway disease, pneumonia, pneumothorax, COPD, CHF, infections, cardiac ischemia, pulmonary embolism, musculoskeletal, gastrointestinal, as well as other pathologies. Diagnostics, as interpreted by me: ECG: Twelve-lead ECG reveals a sinus tachycardia at 107 bpm with frequent PVCs in the pattern of bigeminy. No ST elevation. No ST depression. Cardiac Monitoring: Cardiac monitoring ordered by me: The patient was placed on continuous cardiac monitoring and observed. It revealed a normal sinus rhythm at 94 beats per minute significant PVCs and bigeminy. Medical decision rules: none Imaging studies: Chest x-ray as above HPI: The patient is a 78 year old male who presents to the Emergency Room with complaints of shortness of breath. This started a few days ago and is worsening. The patient also notes the following associated symptoms, fever, cou gh and congestion but he cannot bring anything up. The patient has found no relieving factors. Current pain is rated as 0/10. Patient went to his primary office and was found to be hypoxic. He was directed to the ER by EMS for further management. Pt denies LOC, headache, chills, diaphoresis, visual changes, neck pain, chest pain, nausea, vomiting, abdominal pain, back pain, melena, hematochezia, urinary symptoms, numbness, weakness, lymphadenopathy, rash, or other complaints. PAST MEDICAL HISTORY: See Below, asthma, hypertension PAST SURGICAL HISTORY: See Below, SOCIAL HISTORY: See Below, HOME MEDICATIONS: See Below ALLERGIES: See Below VITALS: See Below PHYSICAL EXAMINATION: GENERAL: Awake, alert, mildly dyspneic-appearing, in no distress HENT: Normocephalic, atraumatic. Oropharynx unremarkable. EYES: Normal conjunctiva. Sclera non-icteric. NECK: Inspection normal. Non-tender. Supple. No nuchal rigidity. FROM. No masses. RESPIRATORY: Clear to auscultation. No wheezes. No rales. Increased respiratory effort. CARDIAC: Borderline tachycardic rate. Normal rhythm. No murmurs. No rubs. Extremities warm and well perfused. Pulses equal. No JVD. GI: Soft, non-distended. No tenderness to palpation. No rebound or guarding. No masses. RECTAL: Deferred. MUSCULOSKELETAL: Atraumatic. Chest examination reveals no tenderness. The back is symmetrical on inspection without obvious abnormality. There is no CVA tenderness to palpation. No joint edema. LOWER EXTREMITIES: Calves are equal size bilaterally and non-tender. 1+ edema. No discoloration. NEURO: Normal sensorium. No sensory or motor deficits noted. SKIN: No rash or jaundice noted. Past Med/Surg History Medical History Asthma Dyslipidemia GERD (gastroesophageal reflux disease) H/O tobacco use, presenting hazards to health HTN (hypertension) Surgical History History of hernia repair History of rotator cuff surgery Family History Brother Coronary heart disease Mother Coronary heart disease Father AAA (abdominal aortic aneurysm) Sister Coronary heart disease Other Family history non-contributory Myocardial infarction Social History Smoking Status: Former smoker Second Hand Exposure: No; Do You Dip or Chew Tobacco: No (30 some years ago); Hx Alcohol Use: Yes Hx Substance Use: No Preferred Language: Pashto Communication Ability: Effective Technical Aid Required: No Beliefs That Will Affect Care: Jew Jew Beliefs: "I'm a [place]" Current Living Situation: Spouse Feels Safe at Home: Yes Assistive Devices: Oxygen - Continuous Allergies Allergies Allergy/AdvReac Type Severity Reaction Status Date / Time Penicillins Allergy Intermediate HIVES Unverified 03/16/23 18:12 banana Allergy Unknown Unverified 03/16/23 18:12 Home Meds Home Medications Medication Instructions Recorded Confirmed ascorbic acid (vitamin C) 500 mg 500 mg PO DAILY 01/07/19 03/16/23 tablet (Vitamin C) atorvastatin 20 mg tablet 20 mg PO QPM 01/07/19 03/16/23 budesonide-formoterol HFA 80 2 puff inhalation DAILY 01/07/19 03/16/23 mcg-4.5 mcg/actuation aerosol inhaler (Symbicort) fenofibrate nanocrystallized 145 145 mg PO DAILY 01/07/19 03/16/23 mg tablet (Tricor) fluticasone propionate 50 1 spray intranasal DAILY 01/07/19 03/16/23 mcg/actuation nasal spray,suspension (Flonase Allergy Relief) losartan 50 mg tablet 50 mg PO DAILY 01/07/19 03/16/23 multivitamin 1 tab PO DAILY 01/07/19 03/16/23 paroxetine HCl 20 mg tablet (Paxil) 20 mg PO DAILY 01/07/19 03/16/23 gabapentin 300 mg capsule 300 mg PO HS 11/04/21 03/16/23 gabapentin 600 mg tablet 600 mg PO TID 11/04/21 03/16/23 omeprazole 20 mg capsule,delayed 20 mg PO DAILY 11/04/21 03/16/23 release Results & Data (ED) Vital Signs Vital Signs - 24 hr 03/16/23 16:58 03/16/23 16:58 03/16/23 16:58 Pulse Rate 114 H Pulse Rate from SpO2 Sensor Respiratory Rate 22 Blood Pressure 185/74 H Blood Pressure Mean 111 Blood Pressure Position Sitting Pulse Oximetry 92 84 L Oxygen Delivery Method Nasal Cannula Nasal Cannula Room Air Nasal Cannula Oxygen Flow Rate 4 4 Sepsis Recent Fever Within 48 Hours Yes Sepsis New/Unexplained Change in Mental Status No Sepsis Action Taken by Nursing Physician Notified Oxygen Flow Rate - Titration 4 Pulse Oximetry Post Tiitration 92 03/16/23 17:41 03/16/23 17:46 03/16/23 17:50 Pulse Rate 103 H 101 H 101 H Pulse Rate from SpO2 Sensor 103 H 116 H Respiratory Rate 23 24 Blood Pressure 135/87 Blood Pressure Mean 103 Blood Pressure Position Pulse Oximetry 96 94 96 Oxygen Delivery Method Nasal Cannula Oxygen Flow Rate 4 Sepsis Recent Fever Within 48 Hours Sepsis New/Unexplained Change in Mental Status Sepsis Action Taken by Nursing Oxygen Flow Rate - Titration Pulse Oximetry Post Tiitration 03/16/23 16:57 03/16/23 18:00 03/16/23 18:30 Pulse Rate 108 H 107 H 107 H Pulse Rate from SpO2 Sensor 109 H 113 H Respiratory Rate 18 22 Blood Pressure 157/96 H 155/79 H Blood Pressure Mean 116 104 Blood Pressure Position Pulse Oximetry 92 91 Oxygen Delivery Method Oxygen Flow Rate 4 4 Sepsis Recent Fever Within 48 Hours Sepsis New/Unexplained Change in Mental Status Sepsis Action Taken by Nursing Oxygen Flow Rate - Titration Pulse Oximetry Post Tiitration 03/16/23 19:01 03/16/23 19:31 03/16/23 20:53 Pulse Rate 105 H 102 H 94 H Pulse Rate from SpO2 Sensor 101 H 101 H Respiratory Rate 20 23 Blood Pressure 137/89 158/90 H Blood Pressure Mean 105 112 Blood Pressure Position Pulse Oximetry 91 91 Oxygen Delivery Method Oxygen Flow Rate Sepsis Recent Fever Within 48 Hours Sepsis New/Unexplained Change in Mental Status Sepsis Action Taken by Nursing Oxygen Flow Rate - Titration Pulse Oximetry Post Tiitration Laboratory Data 03/16/23 17:07 03/16/23 17:07 Lab Results 03/16/23 03/16/23 03/16/23 Range/Units 17:07 17:07 17:07 WBC 15.91 H (4.8-10.8) K/ul RBC 5.29 (4.70-6.10) M/uL Hgb 14.9 (14.0-18.0) g/dl Hct 45.2 (42.0-52.0) % MCV 85.4 (80.0-100.0) fL MCH 28.2 (25.0-34.0) pg MCHC 33.0 (32.0-36.0) g/dL RDW Std Deviation 43.5 (36.4-46.3) fL RDW Coeff of Mariano 14.0 (11.5-14.5) % Plt Count 192 (130-400) K/uL MPV 11.2 (9.4-12.4) fL Immature Gran % (Auto) 0.5 % Neut % (Auto) 82.8 % Lymph % (Auto) 8.9 % Emery % (Auto) 7.4 % Eos % (Auto) 0.1 % Baso % (Auto) 0.3 % Neut # (Auto) 13.17 H (1.40-6.50) K/uL Lymph # (Auto) 1.42 (1.2-3.4) K/uL Emery # (Auto) 1.18 H (0.11-0.59) K/uL Eos # (Auto) 0.02 (0-0.50) K/uL Baso # (Auto) 0.04 (0-0.2) K/uL Immature Gran # (Auto) 0.08 (0.01-0.20) K/uL Sodium 136 (136-145) mmol/L Potassium 3.9 (3.5-5.1) mmol/L Chloride 100 (98-107) mmol/L Carbon Dioxide 27 (21-32) mmol/L Anion Gap 9 (3-11) BUN 19 (6-23) mg/dl Creatinine 1.03 (0.6-1.4) mg/dl Est Cr Clr Drug Dosing Not Reportable Est GFR ( Amer) 80.3 ml/min Est GFR (Non-Af Amer) 69.3 ml/min BUN/Creatinine Ratio 18.4 (10-20) Glucose 132 H (70-99(Fasting)) mg/dl Calcium 9.9 (8.6-10.3) mg/dl Total Bilirubin 1.1 H (0.2-1.0) mg/dl AST 22 (13-39) U/L ALT 18 (7-52) U/L Alkaline Phosphatase 44 (34-104) U/L Troponin I High Sens 16.2 (0-20) pg/ml B-Natriuretic Peptide 254 H (0-100) pg/ml Total Protein 6.9 (6.0-8.3) gm/dl Albumin 4.3 (3.4-5.0) gm/dl Globulin 2.6 (2.5-4.0) gm/dl Albumin/Globulin Ratio 1.7 (0.9-2) Urine Color Urine Appearance (Clear) Urine pH (4.5-7.5) Ur Specific [place] (1.000-1.030) Urine Protein (Negative) Urine Glucose (UA) (Negative) Urine Ketones (Negative) Urine Blood (Negative) Urine Nitrite (Negative) Urine Bilirubin (Negative) Urine Urobilinogen (Negative) Ur Leukocyte Esterase (Negative) Urine WBC (Auto) (0-5) /hpf Urine RBC (Auto) (0-4) /hpf U Hyaline Cast (Auto) (0-5) /lpf U Epithel Cells (Auto) (0-5) /lpf Urine Bacteria (Auto) (Negative) Adenovirus (PCR) (NotDetected) B. pertussis DNA (PCR) (NotDetected) B.parapertussis DNA PCR (NotDetected) C. pneumoniae DNA (PCR) (NotDetected) Coronavirus OC43 (PCR) (NotDetected) Coronavirus HKU1 (PCR) (NotDetected) Coronavirus 229E (PCR) (NotDetected) SARS-CoV-2 (PCR) (NotDetected) Coronavirus NL63 (PCR) (NotDetected) Human Metapneumovir PCR (NotDetected) Influenza Type A (PCR) (NotDetected) Influenza Type B (PCR) (NotDetected) M. pneumoniae (PCR) (NotDetected) Parainfluenza 1 (PCR) (NotDetected) Parainfluenza 2 (PCR) (NotDetected) Parainfluenza 3 (PCR) (NotDetected) Parainfluenza 4 (PCR) (NotDetected) RSV (PCR) (NotDetected) Entero/Rhino (PCR) (NotDetected) 03/16/23 03/16/23 Range/Units 19:57 Unknown WBC (4.8-10.8) K/ul RBC (4.70-6.10) M/uL Hgb (14.0-18.0) g/dl Hct (42.0-52.0) % MCV (80.0-100.0) fL MCH (25.0-34.0) pg MCHC (32.0-36.0) g/dL RDW Std Deviation (36.4-46.3) fL RDW Coeff of Mariano (11.5-14.5) % Plt Count (130-400) K/uL MPV (9.4-12.4) fL Immature Gran % (Auto) % Neut % (Auto) % Lymph % (Auto) % Emery % (Auto) % Eos % (Auto) % Baso % (Auto) % Neut # (Auto) (1.40-6.50) K/uL Lymph # (Auto) (1.2-3.4) K/uL Emery # (Auto) (0.11-0.59) K/uL Eos # (Auto) (0-0.50) K/uL Baso # (Auto) (0-0.2) K/uL Immature Gran # (Auto) (0.01-0.20) K/uL Sodium (136-145) mmol/L Potassium (3.5-5.1) mmol/L Chloride (98-107) mmol/L Carbon Dioxide (21-32) mmol/L Anion Gap (3-11) BUN (6-23) mg/dl Creatinine (0.6-1.4) mg/dl Est Cr Clr Drug Dosing Est GFR ( Amer) ml/min Est GFR (Non-Af Amer) ml/min BUN/Creatinine Ratio (10-20) Glucose (70-99(Fasting)) mg/dl Calcium (8.6-10.3) mg/dl Total Bilirubin (0.2-1.0) mg/dl AST (13-39) U/L ALT (7-52) U/L Alkaline Phosphatase (34-104) U/L Troponin I High Sens (0-20) pg/ml B-Natriuretic Peptide (0-100) pg/ml Total Protein (6.0-8.3) gm/dl Albumin (3.4-5.0) gm/dl Globulin (2.5-4.0) gm/dl Albumin/Globulin Ratio (0.9-2) Urine Color Dark Yellow Urine Appearance Clear (Clear) Urine pH 5.5 (4.5-7.5) Ur Specific [place] 1.021 (1.000-1.030) Urine Protein 1+ H (Negative) Urine Glucose (UA) Negative (Negative) Urine Ketones Negative (Negative) Urine Blood Negative (Negative) Urine Nitrite Negative (Negative) Urine Bilirubin Negative (Negative) Urine Urobilinogen Negative (Negative) Ur Leukocyte Esterase Negative (Negative) Urine WBC (Auto) 1-5 (0-5) /hpf Urine RBC (Auto) 0-4 (0-4) /hpf U Hyaline Cast (Auto) 1-5 (0-5) /lpf U Epithel Cells (Auto) 5-10 H (0-5) /lpf Urine Bacteria (Auto) Negative (Negative) Adenovirus (PCR) Not Detected (NotDetected) B. pertussis DNA (PCR) Not Detected (NotDetected) B.parapertussis DNA PCR Not Detected (NotDetected) C. pneumoniae DNA (PCR) Not Detected (NotDetected) Coronavirus OC43 (PCR) Not Detected (NotDetected) Coronavirus HKU1 (PCR) Not Detected (NotDetected) Coronavirus 229E (PCR) Not Detected (NotDetected) SARS-CoV-2 (PCR) Not Detected (NotDetected) Coronavirus NL63 (PCR) Not Detected (NotDetected) Human Metapneumovir PCR Not Detected (NotDetected) Influenza Type A (PCR) Not Detected (NotDetected) Influenza Type B (PCR) Not Detected (NotDetected) M. pneumoniae (PCR) Not Detected (NotDetected) Parainfluenza 1 (PCR) Not Detected (NotDetected) Parainfluenza 2 (PCR) Not Detected (NotDetected) Parainfluenza 3 (PCR) Not Detected (NotDetected) Parainfluenza 4 (PCR) Not Detected (NotDetected) RSV (PCR) Not Detected (NotDetected) Entero/Rhino (PCR) DETECTED A* (NotDetected) Administered Medications Discontinued Medications Albuterol (Albut/Ipratrop 3mg/0.5mg Neb 3 Ml Vial) 3 ml INH NOW STA Stop: 03/16/23 17:42 Last Admin: 03/16/23 17:53 Dose: 3 ml Documented By: NRB Methylprednisolone (Methylprednisolone 125 Mg/2 Ml Vial) 125 mg IV NOW STA Stop: 03/16/23 17:42 Last Admin: 03/16/23 17:49 Dose: 125 mg Documented By: NRB Imaging Data Radiologist's Impression: Chest X-Ray 03/16/23 17:41 SINGLE VIEW CHEST CLINICAL HISTORY: Dyspnea FINDINGS: An AP, portable, upright chest radiograph is compared to study dated 11/04/2021 and correlated with chest CT dated 01/21/2023. The cardiomediastinal silhouette is unremarkable noting atherosclerotic calcification of the thoracic aorta. Chronic interstitial thickening similar to previous. There is chronic elevation of the right hemidiaphragm. Scarring/atelectasis is noted at the lung bases. No airspace consolidation or large pleural effusion is identified. No pneumothorax is seen. The skeletal structures are osteopenic. The bony thorax is grossly intact. IMPRESSION: No active disease in the chest. ACT 112: Negative or not required by law. Electronically signed by: Giorgio Brown M.D. 03/16/2023 7:06 PM Discharge Plan Visit Data Chief Complaint: Shortness of Breath/Dyspnea Stated Complaint: SHORTNESS OF BREATH ED Provider: Kris Rothman Discharge Problem: Hypoxia, Cough, Rhinovirus infection Forms Stand Alone Forms: [facility] Prescriptions Prescriptions: No Action multivitamin Tablet 1 tab PO DAILY losartan 50 mg Tablet 50 mg PO DAILY atorvastatin 20 mg Tablet 20 mg PO QPM ascorbic acid (vitamin C) [Vitamin C] 500 mg Tablet 500 mg PO DAILY paroxetine HCl [Paxil] 20 mg Tablet 20 mg PO DAILY fluticasone propionate [Flonase Allergy Relief] 50 mcg/actuation [place],Suspension 1 spray INTRANASAL DAILY fenofibrate nanocrystallized [Tricor] 145 mg Tablet 145 mg PO DAILY budesonide-formoterol [Symbicort] 80-4.5 mcg/actuation Hfa Aerosol Inhaler 2 puff INHALATION DAILY Rx Instructions: ordered bid but takes daily omeprazole 20 mg capsule,delayed release(DR/EC) 20 mg PO DAILY gabapentin 600 mg tablet 600 mg PO TID gabapentin 300 mg capsule 300 mg PO HS Referrals Referrals: Wayne Alexander DO [Primary Care Provider] -
--- NOTE | 2023-03-16 20:49 | History & Physical Report ---
Date of Service March 16, 2023 Assessment & Plan (1) Hypoxia: Plan: 78-year-old male with history of asthma presenting with acute hypoxic respiratory failure in the setting of entero-/rhinovirus infection with underlying reactive airway disease/asthma. Patient reports 2 days of progressive dyspnea. Febrile today Tmax = 101. Hypoxic to 84% on room air which is improved with supplemental oxygen. Diffuse wheezing appreciated on exam. Symptoms have improved with nebs and steroids administered in the ER Observation to medical Continue fluticasone/vilanterol inhaled daily DuoNebs every 6 hours scheduled Albuterol every 2 hours as needed Prednisone 40 mg p.o. daily Wean supplemental oxygen as able (2) Rhinovirus infection: Plan: patient with enterovirus infection. Acute hypoxic respiratory failure in the setting of underlying asthma. Management as above Maintain droplet isolation precautions Tylenol as needed for pain (3) Hypertension: Plan: Chronic. Stable. Plan (4) Dyslipidemia: Plan: chronic. Stable. Continue fenofibrate Continue atorvastatin F/E/N -Hep-Lock, electrolytes within the limits, heart healthy diet as tolerated Prophylaxislow risk for DVT Codefull per discussion with patient Dispositionobservation to medical floor History of Present Illness Chief Complaint: Shortness of breath, cough Primary Care Provider: Wayne Alexander DO Gregg Skinner is a 78-year-old male with history of well-controlled asthma, hyperlipidemia, hypertension and GERD presenting with progressive shortness of breath. Patient reports his symptoms began 03/14/2020 3 PM with dry cough. He has had progressive shortness of breath, chest tightness and wheeze since 03/15/2023. He reports he has been unable to sleep due to his shortness of breath. He has taken his home Symbicort with some relief. He does report a fever earlier today 03/16/2023 of 101. He was seen by his PCP in office and was found to be hypoxic with saturation of 87% on room air. Patient was subsequently recommended to come to the emergency room for further work-up and admission. Patient's asthma is overall well controlled. Has been hospitalized 3 times in the past. Triggers seem to be respiratory viruses as well as occasional environmental allergens. He has no history of intubation. Does not frequently use his rescue inhaler. in the ER patient is afebrile, mildly tachycardic with heart rate = 103, hypoxic at 87% on room air. He was placed on supplemental oxygen via nasal can nula with improvement in SPO2 ER course: Albuterol Solu-Medrol Allergies Allergy/AdvReac Type Severity Reaction Status Date / Time Penicillins Allergy Intermediate HIVES Unverified 03/16/23 18:12 banana Allergy Unknown Unverified 03/16/23 18:12 Home Medications Medication Instructions Recorded Confirmed Type ascorbic acid (vitamin C) 500 mg 500 mg PO DAILY 01/07/19 03/16/23 History tablet (Vitamin C) atorvastatin 20 mg tablet 20 mg PO QPM 01/07/19 03/16/23 History budesonide-formoterol HFA 80 2 puff inhalation DAILY 01/07/19 03/16/23 History mcg-4.5 mcg/actuation aerosol inhaler (Symbicort) fenofibrate nanocrystallized 145 145 mg PO DAILY 01/07/19 03/16/23 History mg tablet (Tricor) fluticasone propionate 50 1 spray intranasal DAILY 01/07/19 03/16/23 History mcg/actuation nasal spray,suspension (Flonase Allergy Relief) losartan 50 mg tablet 50 mg PO DAILY 01/07/19 03/16/23 History multivitamin 1 tab PO DAILY 01/07/19 03/16/23 History paroxetine HCl 20 mg tablet (Paxil) 20 mg PO DAILY 01/07/19 03/16/23 History gabapentin 300 mg capsule 300 mg PO HS 11/04/21 03/16/23 History gabapentin 600 mg tablet 600 mg PO TID 11/04/21 03/16/23 History omeprazole 20 mg capsule,delayed 20 mg PO DAILY 11/04/21 03/16/23 History release Past Med/Surg History Medical History Asthma Dyslipidemia GERD (gastroesophageal reflux disease) H/O tobacco use, presenting hazards to health HTN (hypertension) Hypoxia Hypoxia Surgical History History of hernia repair History of rotator cuff surgery Family History Brother Coronary heart disease Mother Coronary heart disease Father AAA (abdominal aortic aneurysm) Sister Coronary heart disease Other Family history non-contributory Myocardial infarction Social History Smoking Status: Former smoker Second Hand Exposure: No; Do You Dip or Chew Tobacco: No (30 some years ago); Hx Alcohol Use: No Hx Substance Use: No Preferred Language: Citizen Of [place] Communication Ability: Effective Kitchen Hand Required: No Beliefs That Will Affect Care: None Current Living Situation: Spouse Other Information That Helps Us Care for You: No Feels Safe at Home: Yes Safety Concerns: Feels Safe At This Time Assistive Devices: Glasses Review of Systems Review of Systems: All systems reviewed & are unremarkable except as noted in HPI & below Physical Exam Physical Exam: General: patient resting comfortably, NAD, non-toxic in appearance, AA&O x 4 Skin: warm, dry, intact, no rashes or lesions HEENT: NC/AT, PERRL, EOMI, anicteric sclera, conjunctiva without injection, external ear normal to inspection and nontender, nares patent, moist mucus membranes, dentition intact, no oropharyngeal lesions, neck supple, trachea midline, no LAD, no thyromegaly, no JVD Heart: +S1/S2, regular, Tachycardic,no m/r/g Lungs: equal air entry bilaterally, mild scattered end expiratory wheezing, coarse breath sounds anteriorly, supplemental oxygen in place Abd: +BS, soft, NT/ND, no masses/organomegaly/ascites Ext: warm, 2+ pulses in UE/LE bilaterally, no clubbing/cyanosis or edema Neuro: nonfocal, patient AA&O x 4, speech intact, no facial droop, moving all extremities on command with equal strength 5/5 Results & Data Results & Data Vital Signs (Past 12 Hours) Vital Signs Pulse Resp BP Pulse Ox O2 Del Method O2 Flow Rate 03/16/23 19:31 102 H 23 158/90 H 91 03/16/23 19:01 105 H 20 137/89 91 03/16/23 18:30 107 H 22 155/79 H 91 4 03/16/23 18:00 107 H 18 157/96 H 92 4 03/16/23 16:57 108 H 03/16/23 17:50 101 H 24 96 03/16/23 17:46 101 H 23 135/87 94 03/16/23 17:41 103 H 96 Nasal Cannula 4 03/16/23 16:58 84 L Room Air, Nasal Cannula 03/16/23 16:58 Nasal Cannula 4 03/16/23 16:58 114 H 22 185/74 H 92 Nasal Cannula 4 Laboratory Results Laboratory Results WBC 15.91 K/ul (4.8-10.8) H 03/16/23 17:07 RBC 5.29 M/uL (4.70-6.10) 03/16/23 17:07 Hgb 14.9 g/dl (14.0-18.0) 03/16/23 17:07 Hct 45.2 % (42.0-52.0) 03/16/23 17:07 MCV 85.4 fL (80.0-100.0) 03/16/23 17:07 MCH 28.2 pg (25.0-34.0) 03/16/23 17:07 MCHC 33.0 g/dL (32.0-36.0) 03/16/23 17:07 RDW Std Deviation 43.5 fL (36.4-46.3) 03/16/23 17:07 RDW Coeff of Mariano 14.0 % (11.5-14.5) 03/16/23 17:07 Plt Count 192 K/uL (130-400) 03/16/23 17:07 MPV 11.2 fL (9.4-12.4) 03/16/23 17:07 Immature Gran % (Auto) 0.5 % 03/16/23 17:07 Neut % (Auto) 82.8 % 03/16/23 17:07 Lymph % (Auto) 8.9 % 03/16/23 17:07 Amelia % (Auto) 7.4 % 03/16/23 17:07 Eos % (Auto) 0.1 % 03/16/23 17:07 Baso % (Auto) 0.3 % 03/16/23 17:07 Neut # (Auto) 13.17 K/uL (1.40-6.50) H 03/16/23 17:07 Lymph # (Auto) 1.42 K/uL (1.2-3.4) 03/16/23 17:07 Amelia # (Auto) 1.18 K/uL (0.11-0.59) H 03/16/23 17:07 Eos # (Auto) 0.02 K/uL (0-0.50) 03/16/23 17:07 Baso # (Auto) 0.04 K/uL (0-0.2) 03/16/23 17:07 Immature Gran # (Auto) 0.08 K/uL (0.01-0.20) 03/16/23 17:07 Sodium 136 mmol/L (136-145) 03/16/23 17:07 Potassium 3.9 mmol/L (3.5-5.1) 03/16/23 17:07 Chloride 100 mmol/L (98-107) 03/16/23 17:07 Carbon Dioxide 27 mmol/L (21-32) 03/16/23 17:07 Anion Gap 9 (3-11) 03/16/23 17:07 BUN 19 mg/dl (6-23) 03/16/23 17:07 Creatinine 1.03 mg/dl (0.6-1.4) 03/16/23 17:07 Est Cr Clr Drug Dosing Not Reportable 03/16/23 17:07 Est GFR ( Amer) 80.3 ml/min 03/16/23 17:07 Est GFR (Non-Af Amer) 69.3 ml/min 03/16/23 17:07 BUN/Creatinine Ratio 18.4 (10-20) 03/16/23 17:07 Glucose 132 mg/dl (70-99(Fasting)) H 03/16/23 17:07 Calcium 9.9 mg/dl (8.6-10.3) 03/16/23 17:07 Total Bilirubin 1.1 mg/dl (0.2-1.0) H 03/16/23 17:07 AST 22 U/L (13-39) 03/16/23 17:07 ALT 18 U/L (7-52) 03/16/23 17:07 Alkaline Phosphatase 44 U/L (34-104) 03/16/23 17:07 Troponin I High Sens 16.2 pg/ml (0-20) 03/16/23 17:07 B-Natriuretic Peptide 254 pg/ml (0-100) H 03/16/23 17:07 Total Protein 6.9 gm/dl (6.0-8.3) 03/16/23 17:07 Albumin 4.3 gm/dl (3.4-5.0) 03/16/23 17:07 Globulin 2.6 gm/dl (2.5-4.0) 03/16/23 17:07 Albumin/Globulin Ratio 1.7 (0.9-2) 03/16/23 17:07 Urine Color Dark Yellow 03/16/23 19:57 Urine Appearance Clear (Clear) 03/16/23 19:57 Urine pH 5.5 (4.5-7.5) 03/16/23 19:57 Ur Specific Okay 1.021 (1.000-1.030) 03/16/23 19:57 Urine Protein 1+ (Negative) H 03/16/23 19:57 Urine Glucose (UA) Negative (Negative) 03/16/23 19:57 Urine Ketones Negative (Negative) 03/16/23 19:57 Urine Blood Negative (Negative) 03/16/23 19:57 Urine Nitrite Negative (Negative) 03/16/23 19:57 Urine Bilirubin Negative (Negative) 03/16/23 19:57 Urine Urobilinogen Negative (Negative) 03/16/23 19:57 Ur Leukocyte Esterase Negative (Negative) 03/16/23 19:57 Urine WBC (Auto) 1-5 /hpf (0-5) 03/16/23 19:57 Urine RBC (Auto) 0-4 /hpf (0-4) 03/16/23 19:57 U Hyaline Cast (Auto) 1-5 /lpf (0-5) 03/16/23 19:57 U Epithel Cells (Auto) 5-10 /lpf (0-5) H 03/16/23 19:57 Urine Bacteria (Auto) Negative (Negative) 03/16/23 19:57 Adenovirus (PCR) Not Detected (NotDetected) 03/16/23 Unknown B. pertussis DNA (PCR) Not Detected (NotDetected) 03/16/23 Unknown B.parapertussis DNA PCR Not Detected (NotDetected) 03/16/23 Unknown C. pneumoniae DNA (PCR) Not Detected (NotDetected) 03/16/23 Unknown Coronavirus OC43 (PCR) Not Detected (NotDetected) 03/16/23 Unknown Coronavirus HKU1 (PCR) Not Detected (NotDetected) 03/16/23 Unknown Coronavirus 229E (PCR) Not Detected (NotDetected) 03/16/23 Unknown SARS-CoV-2 (PCR) Not Detected (NotDetected) 03/16/23 Unknown Coronavirus NL63 (PCR) Not Detected (NotDetected) 03/16/23 Unknown Human Metapneumovir PCR Not Detected (NotDetected) 03/16/23 Unknown Influenza Type A (PCR) Not Detected (NotDetected) 03/16/23 Unknown Influenza Type B (PCR) Not Detected (NotDetected) 03/16/23 Unknown M. pneumoniae (PCR) Not Detected (NotDetected) 03/16/23 Unknown Parainfluenza 1 (PCR) Not Detected (NotDetected) 03/16/23 Unknown Parainfluenza 2 (PCR) Not Detected (NotDetected) 03/16/23 Unknown Parainfluenza 3 (PCR) Not Detected (NotDetected) 03/16/23 Unknown Parainfluenza 4 (PCR) Not Detected (NotDetected) 03/16/23 Unknown RSV (PCR) Not Detected (NotDetected) 03/16/23 Unknown Entero/Rhino (PCR) DETECTED (NotDetected) A* 03/16/23 Unknown Impressions Chest X-Ray 03/16/23 17:41 SINGLE VIEW CHEST CLINICAL HISTORY: Dyspnea FINDINGS: An AP, portable, upright chest radiograph is compared to study dated 11/04/2021 and correlated with chest CT dated 01/21/2023. The cardiomediastinal silhouette is unremarkable noting atherosclerotic calcification of the thoracic aorta. Chronic interstitial thickening similar to previous. There is chronic elevation of the right hemidiaphragm. Scarring/atelectasis is noted at the lung bases. No airspace consolidation or large pleural effusion is identified. No pneumothorax is seen. The skeletal structures are osteopenic. The bony thorax is grossly intact. IMPRESSION: No active disease in the chest. ACT 112: Negative or not required by law. Electronically signed by: Giorgio Brown M.D. 03/16/2023 7:06 PM PG Care Time/CCT Total # of Minutes Spent Total Time Spent with Patient: Total time spent is greater than 50% in coordination of care (as documented) at patient's floor/unit and/or counseling patient: Coding Level of Care Code 77174 INT INP/OBS CARE 2/55MIN Diagnoses Hypoxia R09.02 Rhinovirus infection B34.8 Hypertension I10 Dyslipidemia E78.5
[2023-03-16 20:52] LABS: Appearance Urine Clear (Clear); Bacteria Urine Automated Negative (Negative); Bilirubin Urine Negative (Negative); Blood Urine Negative (Negative); Color Urine Dark Yellow; Glucose Urine UA Negative (Negative); Ketones Urine Negative (Negative); Leukocyte Esterase Urine Negative (Negative); Nitrite Urine Negative (Negative); Protein Urine 1+ (Negative); RBC Urine Automated 0-4 /hpf (0-4); Specific Gravity Urine 1.021 (1.000-1.030); Urobilinogen Urine Negative (Negative); pH Urine 5.5 (4.5-7.5)
[2023-03-16] MEDS ORDERED: ACETAMINOPHEN 325 MG TAB PO PRN (23:25)
[2023-03-16] MEDS ORDERED: ALBUTEROL 0.5% NEB SOLN 2.5 MG/0.5 ML VIAL NEB PRN (23:25)
[2023-03-17] MEDS: ALBUT/IPRATROP 3MG/0.5MG NEB 3 ML VIAL NEB SCH ×4 (00:48→19:51)
[2023-03-17] MEDS ORDERED: COUGH DROP (SUGAR FREE) LOZ 24 LOZ/1 BOX BUCCAL PRN (05:36)
[2023-03-17 07:16] LABS: Hematocrit (blood only) 45.3 % (42.0-52.0); Mean Corpuscular Hemoglobin 28.5 pg (25.0-34.0); Mean Corpuscular Hgb Conc 33.1 g/dL (32.0-36.0); Mean Platelet Volume 11.1 fL (9.4-12.4); Platelet Count 191 K/uL (130-400); RDW Coefficient of Variation 13.9 % (11.5-14.5); RDW Standard Deviation 43.9 fL (36.4-46.3); Red Blood Count 5.27 M/uL (4.70-6.10); White Blood Count 12.44 K/ul (4.8-10.8)
[2023-03-17 07:45] LABS: BUN Creatinine Ratio 24.3 (10-20); Calcium 9.8 mg/dl (8.6-10.3); Creatinine Clr Calc Pharmacy 64.4 ml/min; Est GFR (African American) 76.7 ml/min; Est GFR (Non-African American) 66.1 ml/min; Potassium 4.3 mmol/L (3.5-5.1)
--- NOTE | 2023-03-17 08:01 | Hospitalist Progress Note ---
Date of Service March 17, 2023 Assessment & Plan (1) Hypoxia: Plan: Pt is a 78 yo male with PMH of asthma, HLD, GERD, and HTN presenting from PCPs office d/t O2 sats in the 80s on RA. AHRF secondary to asthma exacerbation in the setting of viral infection - progressive dyspnea over the last few days in association with fevers/chills, cough - Symptoms have improved with nebs and steroids administered in the ER - continue daily fluticasone/vilanterol inhaler - DuoNeb every 6 hr scheduled, albuterol every 2hr PRN - s/p 125mg methylpred; continue prednisone 40 mg PO daily - wean supplemental oxygen as able - consider PFTs as an outpatient to evaluate asthma status Rhino/enterovirus infection - causing acute hypoxic respiratory failure in the setting of asthma - management as above Hypertension - chronic, stable - continue home losartan 50 mg daily Dyslipidemia - chronic, stable - continue fenofibrate, atorvastatin Diet: heart healthy DVT ppx: lovenox Code: full Dispo: med/surg, pt suitable for discharge pending respiratory status and weaning off of supplemental oxygen (2) Rhinovirus infection: (3) Asthma exacerbation: (4) Hypertension: (5) Dyslipidemia: Admission and Anticipated Discharge Date Admission Date: March 16, 2023 Supervising Physician Co-Signing Physician Notes Resident Physician Supervision Note: I independently interviewed and examined the patient and verified the peraza history and physical, reviewed labs and image studies and agree with resident findings and care plan. Subjective Pt seen this AM with his daughter at bedside. He states his breathing is much better than yesterday. He is still requiring oxygen which he does not use at home. He uses symbicort daily at home in addition to an as needed inhaler. He does state that he has had more coughing fits at night recently. He denies chest pain (other than rib pain from coughing), increasing SOB, leg pains. Review of Systems Review of Systems: As per HPI Physical Exam Physical Exam: Constitutional: well appearing, no acute distress HEENT: normocephalic, no conjunctival injection CV: RRR, no murmur, no LE edema Respiratory: Rhonchus breath sounds heard at RUL and RLL. No wheezing or crackles. No increased work of breathing. Currently satting well on 2L NC MSK: no gross deformities noted Skin: warm, dry, no rashes Neuro: alert, oriented, no FND noted Psych: mood and affect congruent Results & Data Results & Data Vital Signs (Past 12 Hours) Vital Signs Temp Pulse Pulse Resp BP BP Pulse Ox 03/17/23 07:30 97 H 18 91 03/17/23 07:27 36.7 C 99 H 17 151/63 H 91 03/17/23 06:18 94 03/17/23 00:49 71 18 94 03/16/23 23:35 03/16/23 23:25 36.9 C 70 18 146/71 H 94 03/16/23 22:44 97 H 20 133/60 93 03/16/23 22:30 98 H 16 133/60 90 03/16/23 22:00 94 H 18 131/82 90 03/16/23 21:50 95 H 20 93 03/16/23 21:31 97 H 21 151/103 H 92 03/16/23 21:00 96 H 20 155/64 H 92 03/16/23 20:30 96 H 19 130/73 92 03/16/23 20:53 94 H O2 Del Method O2 Flow Rate 03/17/23 07:30 Nasal Cannula 2 03/17/23 07:27 Nasal Cannula 2 03/17/23 06:18 Nasal Cannula 2 03/17/23 00:49 Nasal Cannula 3 03/16/23 23:35 Nasal Cannula 4 03/16/23 23:25 Nasal Cannula 4 03/16/23 22:44 Nasal Cannula 4 03/16/23 22:30 03/16/23 22:00 03/16/23 21:50 03/16/23 21:31 03/16/23 21:00 03/16/23 20:30 03/16/23 20:53 Resident Activity Tracking Resident Involvement: Resident Care Provided Care Provided: Adult Hospital Medicine
[2023-03-17] MEDS: FLUTICASONE PROPIONATE NA SPR 16 GM BTL SCH (08:37)
[2023-03-17] MEDS: FENOFIBRATE NANOCRYSTALLIZED 145 MG TABLET PO SCH (08:37)
[2023-03-17] MEDS: LOSARTAN POTASSIUM 50 MG TAB PO SCH (08:38)
[2023-03-17] MEDS: FLUTICASONE/VILANTEROL 100/25MCG 14 PUFFS/INHALER INH SCH (08:38)
[2023-03-17] MEDS: GABAPENTIN 600 MG TAB PO SCH ×4 (08:38→21:05)
[2023-03-17] MEDS: PARoxetine HCL 20 MG TAB PO SCH (08:39)
[2023-03-17] MEDS: predniSONE 20 MG TAB PO SCH (08:40)
[2023-03-17] MEDS ORDERED: PNEUMOCOCCAL POLYSACCHARIDES 25 MCG/0.5 ML VIAL/SYR IM ONE (09:00)
[2023-03-17] MEDS: ENOXAPARIN INJ 40 MG/0.4 ML SYR SQ SCH (09:51)
--- NOTE | 2023-03-17 13:13 | Electrocardiogram Report ---
Test Reason : Blood Pressure : / mmHG Vent. Rate : 107 BPM Atrial Rate : 107 BPM P-R Int : 198 ms QRS Dur : 094 ms QT Int : 322 ms P-R-T Axes : 077 076 071 degrees QTc Int : 429 ms Sinus tachycardia with frequent Premature ventricular complexes in a pattern of bigeminy Possible Left atrial enlargement Abnormal ECG When compared with ECG of 16-MAR-2023 16:58, (unconfirmed) No significant change Confirmed by Mariusz Batista ([id number]) on 03/17/2023 1:13:34 PM Referred By: REFERRED SELF Confirmed By:Mariusz Batista
[2023-03-17] MEDS: ATORVASTATIN 20 MG TAB PO SCH ×2 (21:05)
[2023-03-17] MEDS: GABAPENTIN 300 MG CAP PO SCH ×2 (21:05)
[2023-03-18] MEDS: ALBUT/IPRATROP 3MG/0.5MG NEB 3 ML VIAL NEB SCH ×4 (01:22→19:45)
[2023-03-18 07:27] LABS: Est GFR (African American) 71.8 ml/min; Est GFR (Non-African American) 61.9 ml/min
[2023-03-18] MEDS: FLUTICASONE PROPIONATE NA SPR 16 GM BTL SCH (08:52)
[2023-03-18] MEDS: FENOFIBRATE NANOCRYSTALLIZED 145 MG TABLET PO SCH (08:52)
[2023-03-18] MEDS: FLUTICASONE/VILANTEROL 100/25MCG 14 PUFFS/INHALER INH SCH (08:52)
[2023-03-18] MEDS: PARoxetine HCL 20 MG TAB PO SCH (08:53)
[2023-03-18] MEDS: LOSARTAN POTASSIUM 50 MG TAB PO SCH (08:53)
[2023-03-18] MEDS: GABAPENTIN 600 MG TAB PO SCH ×3 (08:53→20:08)
[2023-03-18] MEDS: predniSONE 20 MG TAB PO SCH (08:54)
[2023-03-18] MEDS: PANTOprazole 40 MG TAB PO SCH (09:25)
[2023-03-18] MEDS: ENOXAPARIN INJ 40 MG/0.4 ML SYR SQ SCH (09:28)
--- NOTE | 2023-03-18 12:05 | Hospitalist Progress Note ---
Date of Service March 18, 2023 Assessment & Plan (1) Hypoxia: Plan: Pt is a 78 yo male with PMH of asthma, HLD, GERD, and HTN presenting from PCPs office d/t O2 sats in the 80s on RA. AHRF secondary to asthma exacerbation in the setting of viral infection - progressive dyspnea over the last few days in association with fevers/chills, cough - Symptoms improved but still feeling short of breath easily - s/p 125mg methylpred; continue prednisone 40 mg PO daily x5 days - continue daily fluticasone/vilanterol inhaler - DuoNeb every 6 hr scheduled, albuterol every 2hr PRN - pt satting well off RA; 2 step performed and his oxygen dropped to 89% w/ exercise - discussed observation in hospital vs. going home with oxygen; pt opting to stay until tomorrow and re evaluate oxygen status tomorrow - consider PFTs as an outpatient to evaluate asthma status Rhino/enterovirus infection - causing acute hypoxic respiratory failure in the setting of asthma - management as above Hypertension - chronic, stable - continue home losartan 50 mg daily Dyslipidemia - chronic, stable - continue fenofibrate, atorvastatin Diet: heart healthy DVT ppx: lovenox Code: full Dispo: med/surg, plan for discharge tomorrow (2) Rhinovirus infection: (3) Asthma exacerbation: (4) Hypertension: (5) Dyslipidemia: Admission and Anticipated Discharge Date Admission Date: March 16, 2023 Supervising Physician Co-Signing Physician Notes Resident Physician Supervision Note: I independently interviewed and examined the patient and verified the peraza history and physical, reviewed labs and image studies and agree with resident findings and care plan. Subjective Pt seen at bedside this AM. He is doing well, off of oxygen. His cough lingers. Otherwise, denies chest pain, increased SOB, and leg pains. Review of Systems Review of Systems: As per HPI Physical Exam Physical Exam: Constitutional: well appearing, no acute distress HEENT: normocephalic, no conjunctival injection CV: RRR, no murmur Respiratory: Rhonchi heard at RLL base. No wheezing or crackles. No increased work of breathing MSK: no gross deformities noted Skin: warm, dry, no rashes Neuro: alert, oriented, no FND noted Psych: mood and affect congruent Results & Data Results & Data Vital Signs (Past 12 Hours) Vital Signs Temp Pulse Pulse Pulse Pulse Pulse Resp 03/18/23 10:46 89 82 81 03/18/23 09:30 03/18/23 07:43 36.5 C 78 16 03/18/23 07:04 75 18 Resp Resp Resp BP Pulse Ox Pulse Ox Pulse Ox 03/18/23 10:46 18 18 18 89 L 93 03/18/23 09:30 03/18/23 07:43 124/67 94 03/18/23 07:04 96 Pulse Ox O2 Del Method O2 Flow Rate 03/18/23 10:46 92 03/18/23 09:30 Room Air 03/18/23 07:43 Nasal Cannula 2 03/18/23 07:04 Nasal Cannula 2 Resident Activity Tracking Resident Involvement: Resident Care Provided Care Provided: Adult Hospital Medicine
[2023-03-18] MEDS: guaiFENesin 600 MG TABCR PO SCH (20:08)
[2023-03-18] MEDS: GABAPENTIN 300 MG CAP PO SCH (20:09)
[2023-03-18] MEDS: ATORVASTATIN 20 MG TAB PO SCH (20:09)
[2023-03-19] MEDS: ALBUT/IPRATROP 3MG/0.5MG NEB 3 ML VIAL NEB SCH ×3 (00:13→14:02)
[2023-03-19] MEDS ORDERED: SODIUM CHLORIDE 0.65% NA SOLN 45 ML (OCEAN) PRN (00:26)
[2023-03-19 07:51] LABS: Creatinine Clr Calc Pharmacy 57.9 ml/min; Est GFR (African American) 67.4 ml/min; Est GFR (Non-African American) 58.2 ml/min
[2023-03-19] MEDS: predniSONE 20 MG TAB PO SCH (08:15)
[2023-03-19] MEDS: PANTOprazole 40 MG TAB PO SCH (08:15)
[2023-03-19] MEDS: PARoxetine HCL 20 MG TAB PO SCH (08:15)
[2023-03-19] MEDS: GABAPENTIN 600 MG TAB PO SCH ×2 (08:16→13:12)
[2023-03-19] MEDS: LOSARTAN POTASSIUM 50 MG TAB PO SCH (08:16)
[2023-03-19] MEDS: FENOFIBRATE NANOCRYSTALLIZED 145 MG TABLET PO SCH (08:16)
[2023-03-19] MEDS: ENOXAPARIN INJ 40 MG/0.4 ML SYR SQ SCH (08:16)
[2023-03-19] MEDS: guaiFENesin 600 MG TABCR PO SCH (08:16)
[2023-03-19] MEDS: FLUTICASONE/VILANTEROL 100/25MCG 14 PUFFS/INHALER INH SCH (08:17)
[2023-03-19] MEDS: FLUTICASONE PROPIONATE NA SPR 16 GM BTL SCH (08:17)
--- NOTE | 2023-03-19 13:35 | Discharge Summary ---
Date of Service March 19, 2023 Admission HPI Per Admitting Provider Gregg Skinner is a 78-year-old male with history of well-controlled asthma, hyperlipidemia, hypertension and GERD presenting with progressive shortness of breath. Patient reports his symptoms began 03/14/2020 3 PM with dry cough. He has had progressive shortness of breath, chest tightness and wheeze since 03/15/2023. He reports he has been unable to sleep due to his shortness of breath. He has taken his home Symbicort with some relief. He does report a fever earlier today 03/16/2023 of 101. He was seen by his PCP in office and was found to be hypoxic with saturation of 87% on room air. Patient was subsequently recommended to come to the emergency room for further work-up and admission. Patient's asthma is overall well controlled. Has been hospitalized 3 times in the past. Triggers seem to be respiratory viruses as well as occasional environmental allergens. He has no history of intubation. Does not frequently use his rescue inhaler. in the ER patient is afebrile, mildly tachycardic with heart rate = 103, hypoxic at 87% on room air. He was placed on supplemental oxygen via nasal cannula with improvement in SPO2 ER course: Albuterol Solu-Medrol Admission Exam Per Admitting Provider Constitutional: WD/WN, vitals as above Eyes: + anicteric sclerae; normal pupil size Respiratory: normal respiratory effort; no respiratory distress Auscultation: + wheezes (mid-end exp wheezing throughout) Cardiovascular: RRR, no murmur, no edema (frequent skipped beats (PVC on monitor, mostly bigeminy)) Gastrointestinal (Abdomen): normal bowel sounds, soft, nontender, no hepatosplenomegaly Musculoskeletal: no cyanosis or clubbing, extremities motor strength 5/5 Skin: no rashes, warm and dry Neurologic: moves all extremities and awake; not confused Psychiatric: A+Ox3, euthymic affect Genitourinary: no CVA tenderness Principal Diagnosis asthma exacerbation in the setting of entero/rhinovirus Discharge Exam Constitutional: well appearing, no acute distress HEENT: normocephalic, no conjunctival injection CV: regular rhythm, no murmur, no LE edema Respiratory: Improvement in right sided rhonchi, expiratory wheezing heard at left lower base. No crackles. No increased work of breathing MSK: no gross deformities noted Skin: warm, dry, no rashes Neuro: alert, oriented, no FND noted Discharge Data Allergies Allergy/AdvReac Type Severity Reaction Status Date / Time Penicillins Allergy Intermediate HIVES Unverified 03/16/23 18:12 banana Allergy Unknown Unverified 03/16/23 18:12 Consultations 03/16/23 20:30 ED Decision to Admit Stat Hospital Course (1) Hypoxia: Pt is a 78 yo male with PMH of asthma, HLD, GERD, and HTN presenting from PCPs office d/t O2 sats in the 80s on RA. AHRF secondary to asthma exacerbation in the setting of viral infection - progressive dyspnea in association with fevers/chills, cough - Symptoms improved throughout hospitalization - s/p 125mg methylpred; continue prednisone 40 mg PO daily x5 days (2 more days upon d/c) - DuoNeb every 6 hr scheduled, albuterol every 2hr PRN while hospitalized - continue home inhaler (Symbicort), mucinex BID, and albuterol inhaler PRN upon discharge - pt satting well off RA at rest; 2 step performed and his oxygen dropped to 87% w/ exercise - pt d/c with home oxygen to be used mostly when pt is active; will discuss further need for this at outpatient f/u - consider PFTs as an outpatient Rhino/enterovirus infection - causing acute hypoxic respiratory failure in the setting of asthma - management as above Hypertension - chronic, stable - continue home losartan 50 mg daily Dyslipidemia - chronic, stable - continue fenofibrate, atorvastatin Diet: heart healthy DVT ppx: lovenox Code: full Dispo: d/c home with supplemental oxygen (2) Rhinovirus infection: (3) Asthma exacerbation: (4) Hypertension: (5) Dyslipidemia: Total Time Total Time Spent Total Time Spent (In Minutes): as per attending attestation Discharge Plan Discharge Items Patient Disposition: Home - Self-Care Reason For Visit: SOB, HYPOXIA Discharge Diagnosis: asthma exacerbation in the setting of viral infection Activity: Per Instructions section Non-emergency contact: Primary Care Provider Call non-emergency contact if: you have any medication questions and your symptoms worsen Follow-up/Referrals: Wayne Alexander DO [Primary Care Provider] - Marina Lee DO [Resident] - 03/24/23 2:05 pm (f/u 03/24/2023) Diet: Heart Healthy Addtl Attending Provider Instructions: You were admitted to the hospital for shortness of breath in association with low oxygen levels. You tested positive for rhino/enterovirus. A chest xray was negative for pneumonia. You were treated with supplemental oxygen, steroids, and breathing treatments. This treatment plan helped to improve your breathing. A discharge summary will be sent to your primary care physician to ensure continuity of care. Please bring this discharge summary with you to your next office appointment so that your provider can review it at that time. Medications: Your medication list has been reviewed and reconciled upon discharge to ensure accuracy and continuity of care. An updated list of all your medications is included with your hospital discharge paperwork. Please review this list closely and make note of any changes to your medications. - You were treated with steroids while hospitalized. You should take 2 pills in the morning for an additional 2 days. - You may also take Mucinex as needed for congestion. - You were sent an additional inhaler to be used if you are feeling acutely short of breath. This is only to be used as needed. You should continue your home inhalers as prescribed. You were also sent home with supplemental oxygen. You should use this when you are up and walking around. If your oxygen saturation drops below 90, you should turn your oxygen on to 2L. You will follow up with Dr. Lee at the [facility] on 03/24 to discuss further steps with the oxygen. The clinic will call you with an appointment time. Follow up appointments: - Make a follow up appointment with your PCP within the next week. It is very important that you follow up with them shortly after discharge from the hospital. - Keep all of your follow up appointments as already scheduled. If you cannot make an appointment, notify your provider. CONTACT YOUR PRIMARY CARE PROVIDER if you experience any of the following: - Difficulty following your treatment plan - Difficulty taking any of your medications CALL 911 OR GO TO THE EMERGENCY DEPARTMENT if you experience any of the following: - Sudden, severe abdominal pain or nausea/vomiting - Severe chest pain or chest pain that radiates to your jaw or arm - Sudden, severe shortness of breath or difficulty breathing Pending Studies at Discharge: No Stand-Alone Forms: [facility], Smoking Cessation Medications and DC Order Prescriptions: New albuterol sulfate 90 mcg/actuation HFA aerosol inhaler 2 inh inhalation QID PRN (Reason: shortness of breath or wheezing) Qty: 6.7 0RF guaifenesin [Mucinex] 600 mg Tablet Extended Release 12hr 600 mg PO Q12 5 Days Qty: 10 0RF prednisone 20 mg Tablet 40 mg PO DAILY 2 Days Qty: 4 0RF Continued multivitamin Tablet 1 tab PO DAILY losartan 50 mg Tablet 50 mg PO DAILY atorvastatin 20 mg Tablet 20 mg PO QPM ascorbic acid (vitamin C) [Vitamin C] 500 mg Tablet 500 mg PO DAILY paroxetine HCl [Paxil] 20 mg Tablet 20 mg PO DAILY fluticasone propionate [Flonase Allergy Relief] 50 mcg/actuation [place],Suspension 1 spray INTRANASAL DAILY fenofibrate nanocrystallized [Tricor] 145 mg Tablet 145 mg PO DAILY budesonide-formoterol [Symbicort] 80-4.5 mcg/actuation Hfa Aerosol Inhaler 2 puff INHALATION DAILY Rx Instructions: ordered bid but takes daily omeprazole 20 mg capsule,delayed release(DR/EC) 20 mg PO DAILY gabapentin 600 mg tablet 600 mg PO TID gabapentin 300 mg capsule 300 mg PO HS Discharge Orders: Discharge Order (Routine); Ordered 03/19/23 Ordered By: Marina Lee Admission Data Admit Date/Time: 03/18/23 11:58 Attending Provider: Radha Salcedo Admit Provider: Tracey Magdaleno Primary Care Provider: Wayne Alexander Other Providers: Tracey Magdaleno Other Interventions: Discharge Summary Assessment (RN) Last Done: 03/19/23 13:36 Supervising Physician Co-Signing Physician Notes Resident Physician Supervision Note: I independently interviewed and examined the patient and verified the peraza history and physical, reviewed labs and image studies and agree with resident findings and care plan. Resident Activity Tracking Resident Involvement: Resident Care Provided Care Provided: Adult Hospital Medicine
[2023-03-20] MEDS ORDERED: PANTOprazole 40 MG TAB PO SCH (09:00)
== END 2023-03-19 15:12 | disposition home or self-care (01) | DRG 202 ==
LOC: ED 16:51 → 3N 16:51 → SUATTDRO 20:48 → 3N 22:44